=== PATIENT | male | born 1960 | race Caucasian/White ===

== ENCOUNTER 2017-06-15 08:35 | Emergency (ER) | payer OTHER ==
[2017-06-15] MEDS ORDERED: NS 0.9% 1000 ML* 1,000 ML IV ONE (09:25)
[2017-06-15 09:56] LABS: ABS Basophils 0.1 10^3/ul (0-0.2); ABS Eosinophils 0.5 10^3/ul (0-0.6); ABS Lymphocytes 1.8 10^3/ul (1.0-4.8); ABS Monocytes 1.1 10^3/ul (0-0.8); ABS Neutrophils 6.6 10^3/ul (1.5-7.7); ABS Nucleated RBC 0 10^3/ul; Eosinophil % 4.7 % (0-6); Hematocrit 35 % (42-52); Hemoglobin 12.1 g/dl (14.0-18.0); Lymphocyte % 18.1 % (25-47); Mean Corpuscular HGB Conc 34 g/dl (31-36); Mean Corpuscular Hemoglobin 33 pg (27-31); Mean Corpuscular Volume 96 fL (80-94); Mean Platelet Volume 7 um3 (7.4-10.4); Nucleated Red Blood Cells % 0.3; Platelet Count 134 10^3/ul (150-450); Red Blood Count 3.66 10^6/ul (4.0-5.4); Red Cell Distribution Width 14 % (10.5-15)
[2017-06-15 10:24] LABS: EGFR Non-African American 132.2 (>60)
[2017-06-15 14:10] VITALS: BP 112/63
--- NOTE | 2017-06-15 16:23 | ED ---
Shamar Mena Stephanie, scribed for Esteban Jay MD on 06/15/17 at 1033 . GI/ HPI - HPI Summary HPI Summary: The pt is a 57 y/o M presenting to the ED with c/o diarrhea that began 1 month ago after being prescribed abx for pneumonia. The diarrhea began as loose stools and currently is described as watery stools 4-5x per day. The PCP suggested Imodium (no effect) . He denies taking probiotics. Symptoms include decreased appetite and lack of energy. The pt reports being able to drink more fluids since stopping Imodium. - History of Current Complaint Chief Complaint: EDNauseaVomitDiarrh Time Seen by Provider: 06/15/17 09:17 Stated Complaint: DIARRHEA 1 MONTH Hx Obtained From: Patient Onset/Duration: Started Weeks Ago - 4 Timing: Constant Pain Intensity: 0 Associated Signs and Symptoms: Positive: Diarrhea, Change in Appetite, Other: - Positive: Decreased energy Aggravating Factor(s): Food Alleviating Factor(s): Nothing - Allergy/Home Medications Allergies/Adverse Reactions: Allergies Allergy/AdvReac Type Severity Reaction Status Date / Time No Known Allergies Allergy Verified 12/14/14 09:18 PMH/Surg Hx/FS Hx/Imm Hx Endocrine/Hematology History: Denies: Hx Diabetes, Hx Thyroid Disease Cardiovascular History: Denies: Hx Hypertension Respiratory History: Reports: Hx Chronic Obstructive Pulmonary Disease (COPD) - MAYBE Denies: Hx Asthma GI History: Denies: Hx Ulcer Infectious Disease History: No Infectious Disease History: Reports: Hx Hepatitis - Hepatitis C Denies: Hx Human Immunodeficiency Virus (HIV), History Other Infectious Disease, Traveled Outside the [place] in Last 30 Days - Family History Known Family History: Positive: Unknown - Pt denies family history when asked - Social History Alcohol Use: None Alcohol Amount: not for one month Hx Substance Use: No Substance Use Type: Reports: None Hx Tobacco Use: Yes Smoking Status (MU): Heavy Every Day Tobacco Smoker Type: Cigarettes Amount Used/How Often: 1/2 ppd Length of Time of Smoking/Using Tobacco: 20 years Have You Smoked in the Last Year: Yes Review of Systems Positive: Other - Positive: Decreased appetite, decreased energy. Negative: Fever Positive: Diarrhea All Other Systems Reviewed And Are Negative: Yes Physical Exam - Summary Physical Exam Summary: Appearance: The patient is well-nourished in no acute distress and in no acute pain. Skin: The skin is warm and dry and skin color reflects adequate perfusion. HEENT: The head is normocephalic and atraumatic. The pupils are equal and reactive. The conjunctivae are clear and without drainage. Nares are patent and without drainage. Dry mucus membranes. Throat is without erythema and exudate. The external ears are intact. The ear canals are patent and without drainage. The tympanic membranes are intact. Neck: the neck is supple with full range of motion and non-tender. There are no carotid bruits. There is no neck vein distension. Respiratory: Chest is non-tender. Lungs are clear to auscultation and breath sounds are symmetrical and equal. Cardiovascular: Heart is borderline tachycardic. . There is no murmur or rub auscultated. There is no peripheral edema and pulses are symmetrical and equal. Abdomen: The abdomen is soft and non-tender. There are normal bowel sounds heard in all four quadrants and there is no organomegaly palpated. Musculoskeletal: There is no back tenderness noted. Extremities are non-tender with full range of motion. There is good capillary refill. There is no peripheral edema or calf tenderness elicited. Neurological: Patient is alert and oriented to person, place and time. The patient has symmetrical motor strength in all four extremities. Cranial nerves are grossly intact. Deep tendon reflexes are symmetrical and equal in all four extremities. Psychiatric: The patient has an appropriate affect and does not exhibit any anxiety or depression. Triage Information Reviewed: Yes Vital Signs On Initial Exam: Initial Vitals Temp Pulse Resp BP Pulse Ox 98.9 F 102 18 112/70 92 06/15/17 08:36 06/15/17 08:36 06/15/17 08:36 06/15/17 08:36 06/15/17 08:36 Vital Signs Reviewed: Yes - Sarwat Coma Scale Coma Scale Total: 15 Diagnostics - Vital Signs Vital Signs Temp Pulse Resp BP Pulse Ox 06/15/17 09:00 96 17 116/61 93 06/15/17 08:52 100.4 F 100 22 94 06/15/17 08:50 117/67 06/15/17 08:36 98.9 F 102 18 112/70 92 - Laboratory Lab Results: Lab Results 06/15/17 06/15/17 06/15/17 Range/Units 09:40 09:40 09:40 WBC 10.0 (3.5-10.8) 10^3/ul RBC 3.66 L (4.0-5.4) 10^6/ul Hgb 12.1 L (14.0-18.0) g/dl Hct 35 L (42-52) % MCV 96 H (80-94) fL MCH 33 H (27-31) pg MCHC 34 (31-36) g/dl RDW 14 (10.5-15) % Plt Count 134 L (150-450) 10^3/ul MPV 7 L (7.4-10.4) um3 Neut % (Auto) 65.4 (38-83) % Lymph % (Auto) 18.1 L (25-47) % [place] % (Auto) 11.2 H (1-9) % Eos % (Auto) 4.7 (0-6) % Baso % (Auto) 0.6 (0-2) % Absolute Neuts (auto) 6.6 (1.5-7.7) 10^3/ul Absolute Lymphs (auto) 1.8 (1.0-4.8) 10^3/ul Absolute Monos (auto) 1.1 H (0-0.8) 10^3/ul Absolute Eos (auto) 0.5 (0-0.6) 10^3/ul Absolute Basos (auto) 0.1 (0-0.2) 10^3/ul Absolute Nucleated RBC 0 10^3/ul Nucleated RBC % 0.3 Sodium 130 L (133-145) mmol/L Potassium 3.3 L (3.5-5.0) mmol/L Chloride 99 L (101-111) mmol/L Carbon Dioxide 26 (22-32) mmol/L Anion Gap 5 (2-11) mmol/L BUN 10 (6-24) mg/dL Creatinine 0.63 L (0.67-1.17) mg/dL Est GFR ( Amer) 170.0 (>60) Est GFR (Non-Af Amer) 132.2 (>60) BUN/Creatinine Ratio 15.9 (8-20) Glucose 120 H (70-100) mg/dL Lactic Acid 2.1 H* (0.5-2.0) mmol/L Calcium 7.6 L (8.6-10.3) mg/dL Total Bilirubin 2.20 H (0.2-1.0) mg/dL AST 44 H (13-39) U/L ALT 24 (7-52) U/L Alkaline Phosphatase 61 (34-104) U/L C-Reactive Protein 50.26 H (< 5.00) mg/L Total Protein 6.7 (6.4-8.9) g/dL Albumin 2.1 L (3.2-5.2) g/dL Globulin 4.6 H (2-4) g/dL Albumin/Globulin Ratio 0.5 L (1-3) Lipase 58 (11.0-82.0) U/L Result Diagrams: 06/15/17 09:40 06/15/17 09:40 Lab Statement: Any lab studies that have been ordered have been reviewed, and results considered in the medical decision making process. GIGU Course/Dx - Course Course Of Treatment: Mr. Daily presented with watery diarrhea for several days. He was rehydrated and his stool was positive for fecal lactoferrin. I will treat him with levaquin for 5 days and cultures will be followed. - Diagnoses Provider Diagnoses: Gastroenteritis Discharge - Discharge Plan Condition: Stable Disposition: HOME Prescriptions: Levofloxacin TAB* [Levaquin TAB*] 750 mg PO DAILY #5 tab Patient Education Materials: Gastroenteritis (ED) Forms: *Work Release Referrals: Selina SOLIMAN,Edmond Peoples [Primary Care Provider] - Additional Instructions: Follow up with primary care physician next week. The documentation as recorded by the Shamar ho Stephanie accurately reflects the service I personally performed and the decisions made by , Esteban Jay MD.
--- NOTE | 2017-06-16 09:08 | PN ---
Progress Note - Progress Note Date of Service: 06/15/17 Note: C. diff negative. Fecal Lactroferrin positive. Negative cryptosporidium/giardia Positive stool occult blood No medications are warranted at this time. Nothing further. Ashley Fowler PA-C
== END 2017-06-15 14:04 | disposition home or self-care (01) ==
LOC: ED 08:35
DX: K52.9 Noninfective gastroenteritis and colitis, unspecified (principal); Z86.19 Personal history of other infectious and parasitic diseases; F17.210 Nicotine dependence, cigarettes, uncomplicated
CPT/HCPCS: 36415; 80053; 82272; 83605; 83630; 83690; 85025; 86140; 87328; 87329; 87493; 96360; 99284

== ENCOUNTER 2017-06-26 08:44 | Inpatient (IN) | payer OTHER ==
[2017-06-26 10:26] LABS: ABS Basophils 0 10^3/ul (0-0.2); ABS Eosinophils 0.2 10^3/ul (0-0.6); ABS Lymphocytes 1.6 10^3/ul (1.0-4.8); ABS Monocytes 0.8 10^3/ul (0-0.8); ABS Neutrophils 6.9 10^3/ul (1.5-7.7); ABS Nucleated RBC 0 10^3/ul; Eosinophil % 2.1 % (0-6); Hematocrit 36 % (42-52); Hemoglobin 12.2 g/dl (14.0-18.0); Lymphocyte % 16.8 % (25-47); Mean Corpuscular HGB Conc 34 g/dl (31-36); Mean Corpuscular Hemoglobin 33 pg (27-31); Mean Corpuscular Volume 96 fL (80-94); Mean Platelet Volume 7 um3 (7.4-10.4); Nucleated Red Blood Cells % 0.3; Platelet Count 118 10^3/ul (150-450); Red Blood Count 3.72 10^6/ul (4.0-5.4); Red Cell Distribution Width 15 % (10.5-15); White Blood Count 9.5 10^3/ul (3.5-10.8)
[2017-06-26] MEDS ORDERED: NS 0.9% 1000 ML* 1,000 ML IV ONE ×2 (10:37→11:25)
--- NOTE | 2017-06-26 10:43 | ED ---
Complex/Multi-Sys Presentation - HPI Summary HPI Summary: 57 male presents to ED with complaints of chronic diarrhea, dysphagia and losing weight over the past month or so. Patient states he is getting to the point he is unable to eat and drink due to the discomfort. States he feels weak and fatigued. Admits to cigarette and alcohol use however has not in the past month due to feeling so ill. Patient denies any known PMHx other than COPD and hepatitis c. No medications daily. Has not taken any since. Has been treated with antibitoics due to findings of fecal lactoferrin in stool when he was year ~10 days ago. Negative for c diff at this time. Patient completed the levofloxacin however is still experiencing symptoms. Denies urinary symptoms. Admits to intermittent red-colored blood in stool that has also been ongoing. Patient has followed up with GI last week who scheduled a colonscopy and endoscopy for this Monday. Patient however comes to ED today due to concern for weight loss and not being able to eat. Concerned for his well being. Denies trouble breathing, chest pain and vomiting. Admits to intermittent nausea. Denies any current pain, lower right sided abdominal pain comes and goes and is related to eating/drinking. - History Of Current Complaint Chief Complaint: EDGeneral Time Seen by Provider: 06/26/17 09:55 Hx Obtained From: Patient Onset/Duration: Gradual Onset, Lasting Weeks, Still Present, Worse Since Timing: Constant Severity Currently: Moderate Severity Initially: Mild Aggravating Factor(s): eating/drinking Alleviating Factor(s): not eating/drinking Associated Signs And Symptoms: Positive: Weakness, Nausea, Abdominal Pain - Allergies/Home Medications Allergies/Adverse Reactions: Allergies Allergy/AdvReac Type Severity Reaction Status Date / Time No Known Allergies Allergy Verified 06/26/17 08:54 Home Medications: Home Medications NK [No Home Medications Reported] 06/26/17 [History Confirmed 06/26/17] PMH/Surg Hx/FS Hx/Imm Hx Endocrine/Hematology History: Denies: Hx Diabetes, Hx Thyroid Disease Cardiovascular History: Denies: Hx Hypertension Respiratory History: Reports: Hx Chronic Obstructive Pulmonary Disease (COPD) - MAYBE Denies: Hx Asthma GI History: Denies: Hx Ulcer - Surgical History Surgery Procedure, Year, and Place: none - Immunization History Immunizations Up to Date: Yes Infectious Disease History: No Infectious Disease History: Reports: Hx Hepatitis - Hepatitis C Denies: Hx Human Immunodeficiency Virus (HIV), History Other Infectious Disease, Traveled Outside the [place] in Last 30 Days - Family History Known Family History: Positive: Unknown - Pt denies family history when asked - Social History Alcohol Use: None Alcohol Amount: not for one month Hx Substance Use: No Substance Use Type: Reports: None Hx Tobacco Use: Yes Smoking Status (MU): Former Smoker Type: Cigarettes Amount Used/How Often: 1/2 ppd Length of Time of Smoking/Using Tobacco: 20 years Have You Smoked in the Last Year: Yes Review of Systems Constitutional: Negative Cardiovascular: Negative Respiratory: Negative Positive: Abdominal Pain, Diarrhea, Nausea, Other - dysphagia Musculoskeletal: Negative Skin: Negative Neurological: Negative All Other Systems Reviewed And Are Negative: Yes Physical Exam Triage Information Reviewed: Yes Vital Signs On Initial Exam: Initial Vitals Temp Pulse Resp BP Pulse Ox 99.8 F 100 18 108/74 98 06/26/17 08:49 06/26/17 08:49 06/26/17 08:49 06/26/17 08:49 06/26/17 08:49 low grade temp noted Vital Signs Reviewed: Yes Appearance: Positive: No Pain Distress, Well-Nourished, Ill-Appearing, Thin, Cachectic Skin: Positive: Warm, Skin Color Reflects Adequate Perfusion, Dry, Pale, Other - some increased skin turgor time. Negative: Cold, Numb, Cyanosis @ Head/Face: Positive: Normal Head/Face Inspection Eyes: Positive: Conjunctiva Clear ENT: Positive: Hearing grossly normal, Pharyngeal erythema - with white exudate in oropharynx area, TMs normal, Uvula midline, Other - dry mucous membranes with white exudate on tongue, geopraphic looking tongue. Negative: Nasal congestion, Tonsillar swelling, Tonsillar exudate, Dental tenderness, Sinus tenderness Dental: Positive: Gross Decay/Caries @ Neck: Positive: Supple, Nontender, No Lymphadenopathy Respiratory/Lung Sounds: Positive: Clear to Auscultation, Breath Sounds Present , Wheezes - diffuse. Negative: Rales, Rhonchi Cardiovascular: Positive: Normal, RRR, Pulses are Symmetrical in both Upper and Lower Extremities. Negative: Murmur, Rub Abdomen Description: Positive: No Organomegaly, Soft, Distended - acites, Other : - tender on deep palpation of RLQ. Negative: Bruit, CVA Tenderness (R), CVA Tenderness (L), Guarding, Hernia @, McBurney's Point Tenderness Bowel Sounds: Positive: Present Musculoskeletal: Positive: Normal, Strength/ROM Intact Neurological: Positive: Normal, Sensory/Motor Intact, Alert, Oriented to Person Place, Time, CN Intact II-III, Reflexes Intact, NV Bundle Intact Distally, Normal Gait - Sarwat Coma Scale Coma Scale Total: 15 Diagnostics - Vital Signs Vital Signs Temp Pulse Resp BP Pulse Ox 06/26/17 09:17 99 114/70 98 06/26/17 08:49 99.8 F 100 18 108/74 98 - Laboratory Lab Results: Lab Results 06/26/17 Range/Units 10:07 WBC 9.5 (3.5-10.8) 10^3/ul RBC 3.72 L (4.0-5.4) 10^6/ul Hgb 12.2 L (14.0-18.0) g/dl Hct 36 L (42-52) % MCV 96 H (80-94) fL MCH 33 H (27-31) pg MCHC 34 (31-36) g/dl RDW 15 (10.5-15) % Plt Count 118 L (150-450) 10^3/ul MPV 7 L (7.4-10.4) um3 Neut % (Auto) 72.1 (38-83) % Lymph % (Auto) 16.8 L (25-47) % [place] % (Auto) 8.8 (1-9) % Eos % (Auto) 2.1 (0-6) % Baso % (Auto) 0.2 (0-2) % Absolute Neuts (auto) 6.9 (1.5-7.7) 10^3/ul Absolute Lymphs (auto) 1.6 (1.0-4.8) 10^3/ul Absolute Monos (auto) 0.8 (0-0.8) 10^3/ul Absolute Eos (auto) 0.2 (0-0.6) 10^3/ul Absolute Basos (auto) 0 (0-0.2) 10^3/ul Absolute Nucleated RBC 0 10^3/ul Nucleated RBC % 0.3 Result Diagrams: 06/26/17 10:07 06/26/17 10:07 Lab Statement: Any lab studies that have been ordered have been reviewed, and results considered in the medical decision making process. - CT chest/abd/pelvis CT Interpretation: Positive (See Comments) - 1. No specific CT abnormalities of the chest. 2. Cirrhotic liver morphology. 3. Multiple hepatic lesions concerning for hepatic metastasis. 4. Cholelithiasis. 5. Infiltration and nodularity of the mesentery. The findings are suspicious for peritoneal carcinomatosis. 6. Moderate ascites. 7. Diffuse bowel wall thickening of the colon suggests colitis. 8. Chronic L4 spondylolysis with anterolisthesis and underlying osseous or changes. CT Interpretation Completed By: Radiologist - and myself soft tissue neck CT Interpretation: No Acute Changes - IMPRESSION: No visceral mass, lymphadenopathy, or inflammatory process of the neck evident within limits of noncontrast CT. CT Interpretation Completed By: Radiologist - and myself Re-Evaluation - Re-Evaluation First Eval Re-Evaluation Time: 11:30 Change: Unchanged - still feeling ok, upated on lab results and given fluids for dehydration. waiting on CT patient understands he will have hospitalist consult and probably be admitted Complex Multi-Symp Course/Dx Course Of Treatment: labs obtained. showed signs of dehydration and hypokalemia/ hypocalcemia. Albumin globulin values off, lactic acid slightly elevated at 2.1. Anemic, similar to previously obtained labs 10 days ago. bili and liver enzymes off, patient does have hep c. CRP elevated. due to physical exam findings and labs CT neck, chest, abd, pelvic obtained. Showed probably mets and other forms of cancer along with cirrhosis of liver. Report is attached above. Patient dehydrated and unable to take care of himself. Spoke with hospitalist Dr Rivero, at 11:15am who will see patient and admit. given fluids while in ED. - Diagnoses Differential Diagnoses/HQI/PQRI: Other - dehydration, diarrhea, dysphagia, infection, cancer, cirrhosis Provider Diagnoses: Dehydration, Cirrhosis of liver - Physician Notifications Discussed Care Of Patient With: Johnny Cheng NP Time Discussed With Above Provider: 11:15 Instructed by Provider To: Admit As Inpatient Discharge - Discharge Plan Condition: Stable Disposition: ADMITTED TO [facility]
[2017-06-26 10:48] LABS: EGFR Non-African American 123.2 (>60)
[2017-06-26] MEDS ORDERED: Iohexol 300* (CONTRAST) 10 ML SDV IV ONE (11:08)
[2017-06-26] MEDS ORDERED: Loperamide LIQ* 2 MG/10 ML UDC PO PRN (13:05)
--- NOTE | 2017-06-26 13:40 | RAD ---
INDICATION: Difficulty and pain with swallowing. Weight loss. Tobacco use. Abdominal pain. COMPARISON: No relevant prior exams available on the [facility] PACS for comparison. TECHNIQUE: Multidetector CT images skull base to lung apices without contrast. REPORT: Assessment of the neck viscera is limited without IV contrast. Unremarkable pharyngeal mucosal space contours. Unremarkable false and true vocal cords and visualized subglottic airway. Symmetric parapharyngeal fat. Unremarkable parotid and submandibular glands. Unremarkable thyroid gland. Negative for lymphadenopathy. Clear paranasal sinuses and mastoid air spaces. Negative for suspicious focal osseous lesions, fracture, or articular malalignment. Advanced disc space narrowing, osteophytosis, and subchondral sclerosis at the C3-C4 disc space. Uncinate process spurring results in moderately severe bilateral C3-C4 foraminal stenosis. The remaining cervical spine disc levels demonstrate only mild degenerative spondylosis. Uncinate process spurring results in mild RIGHT unilateral C4-C5 foraminal stenosis. IMPRESSION: No visceral mass, lymphadenopathy, or inflammatory process of the neck evident within limits of noncontrast CT.
--- NOTE | 2017-06-26 13:46 | RAD ---
INDICATION: Pain. Weight loss. COMPARISON: None TECHNIQUE: Axial source images were obtained from the thoracic inlet to the symphysis pubis following administration of intravenous contrast. 91 mL Omnipaque 300 was utilized. Coronal and sagittal reconstructed images were acquired. CHEST FINDINGS: Neck/thyroid: The visualized neck to include the thyroid appear normal. Chest wall: There are no acute abnormalities of the bony thorax or chest wall. There is no supraclavicular, infraclavicular, or axillary lymphadenopathy. Lungs : There are no pulmonary parenchymal masses or infiltrates. The pulmonary interstitium appears normal. There are no endobronchial lesions. Cardiomediastinal structures: The heart is normal in size. There is no pericardial effusion. There is no evidence of aortic aneurysm or dissection. The pulmonary vessels appear normal. There is no mediastinal or hilar adenopathy. The esophagus appears normal. Pleura : There are no pleural-based masses or effusions. ABDOMINAL/PELVIC FINDINGS: Liver: The liver is heterogeneous with a nodular configuration. These morphologic features may relate to cirrhosis. There are multiple low-density masses scattered throughout both left and right hepatic lobes. These measure up to 2.7 cm and are suspicious for hepatic metastasis. Gallbladder: Cholelithiasis. Spleen: Moderate splenomegaly without focal mass. Incidental note is made of a cleft in the superior spleen. There is a probable splenule. Pancreas: There is no evidence of pancreatic mass or ductal dilatation. Adrenal glands: There is no evidence of adrenal mass. Kidneys: The kidneys are normal in size and position. There are prompt nephrograms and there is prompt excretion bilaterally. There are no renal parenchymal masses. There is no evidence of nephrolithiasis. Adenopathy: No discrete intraperitoneal masses but there is diffuse nodularity throughout the mesentery suggestive of peritoneal carcinomatosis. Fluid collections: Moderate ascites. Vessels:The aorta and IVC appear normal GI tract: Evaluation of the GI tract is mildly limited without oral contrast. The patient could not ingest the oral contrast. The upper GI tract is grossly normal. There is diffuse wall thickening of the colon suggestive of colitis Pelvic organs: The prostate and seminal vesicles appear normal Bladder: There are no bladder masses. Abdominal and pelvic soft tissues: The extraperitoneal abdominal and pelvic soft tissues appear normal.. Osseous structures: There are no acute osseous findings. There is advanced degenerative change about L4-L5 with a grade 1-2 anterolisthesis and a chronic L4 spondylolysis. There is spurring at the thoracolumbar junction. There are bilateral pseudoarticulations at L5. IMPRESSION: 1. No specific CT abnormalities of the chest. 2. Cirrhotic liver morphology. 3. Multiple hepatic lesions concerning for hepatic metastasis. 4. Cholelithiasis. 5. Infiltration and nodularity of the mesentery. The findings are suspicious for peritoneal carcinomatosis. 6. Moderate ascites. 7. Diffuse bowel wall thickening of the colon suggests colitis. 8. Chronic L4 spondylolysis with anterolisthesis and underlying osseous or changes. Findings called to ED
[2017-06-26] MEDS ORDERED: Heparin VIAL(*) 5000 UNITS/ML VIAL (FIVE THOUSAND) SUBCUT SCH (15:00)
[2017-06-26] MEDS: D5W 1/2 NS 40 Meq KCL 1000 ML* 1,000 ML IV SCH (17:38)
[2017-06-26] MEDS ORDERED: PEG 3000 GI LAVAGE* 1 GALLON PO ONE (21:00)
--- NOTE | 2017-06-26 22:27 | HP ---
HISTORY AND PHYSICAL: DATE OF ADMISSION: 06/26/17 PRIMARY CARE PROVIDER: ADDY Coffey in [place]. MY ATTENDING WHILE IN THE HOSPITAL: Dr. Shannan Chance * (DICTATED BY CALVIN GRAY) CHIEF COMPLAINT: Diarrhea and weight loss x1 month. HISTORY OF PRESENT ILLNESS: The patient is a 57-year-old male with a past medical history significant for hepatitis C, cirrhosis, alcohol abuse, tobacco abuse and COPD, who presents to the emergency department the secondary time in the last month with diarrhea and weight loss of about 15 pounds. The patient describes diarrhea as watery that happens numerous times a day, small amounts each time without tenesmus. Occasionally, there is a small amount of bright red blood. The patient states it wakes him up in the middle of the night to have to go, but he is not incontinent of stool. The patient states he has been increasingly lethargic and feels dehydrated, but denies any lightheadedness or dizziness. The patient states he has diffuse abdominal discomfort, but denies swelling or any stabbing pains. The patient also says that he has trouble swallowing food, mainly solids that get stuck part of the way down his throat. The patient, however, is able to eat soft food such as yogurt, occasional cereal as long as it is moist. The patient is seen outpatient by a supervisor keymodule assembly, who is planning to do a colonoscopy and endoscopy this coming Monday. The patient sees Dr. Coleman in [place]. The patient has a history of liver cirrhosis documented on abdominal ultrasound at this institution previously, approximately 8 years ago, but does not know much about the natural history of his disease and does not follow with a supervisor keymodule assembly or accordion tuner. The patient denies any recent travels or camping, eating abnormal foods, changes in diet or medications. The patient traveled to [facility] 2 years ago, but did not have any symptoms after that. The patient denies fevers, chills, overt nausea or vomiting, chest pain or shortness of breath. The patient states he feels like he has a postnasal drip. The patient states that he has not had anything to drink or smoke in 30 days since this began. PAST MEDICAL HISTORY: COPD, hepatitis C with cirrhosis, tobacco use disorder, alcohol abuse disorder. MEDICATIONS: The patient uses an unknown inhaler and denies any other medication use. ALLERGIES: The patient has no known drug allergies. FAMILY HISTORY: The patient denies a family history of CAD, colon cancer, inflammatory bowel disease, celiac disease, or diabetes. The patient's grandmother of breast cancer, but has no other family history of cancer. SOCIAL HISTORY: The patient has a 25-pack year history of smoking, quit 30 days ago. The patient has 6-pack a day drinking habit, quit 30 days ago. The patient denies any illicit drugs. The patient works as an low voltage electrician, is not , has a long-term partner, name Deni Sanz, who is his healthcare proxy. The patient also has 2 children. REVIEW OF SYSTEMS: A 14-point review of systems was reviewed with the patient and is negative expect as stated in the HPI. PHYSICAL EXAMINATION GENERAL: The patient is a 57-year-old male, who is sitting in the bed, in no acute distress and appears stated age. VITAL SIGNS: Temperature 99.8, heart rate 100, respiratory rate 18, oxygen saturation 99% on room air, blood pressure 108/74. HEENT: Head: Normocephalic, atraumatic. Sclerae anicteric. No conjunctival injection. Nasal mucosa dry. Oral mucosa dry. Pharynx erythematous. There is significant postnasal drainage. NECK: Supple, nontender. No lymphadenopathy. No carotid bruit auscultated. RESPIRATORY: The patient has expiratory wheezes throughout all lung santos with prolonged expiratory phase. Good air exchange bilaterally. No other abnormalities. CARDIAC: Regular rate and rhythm. No clicks, murmurs, gallops, or rubs. Pulses 2+ in the bilateral dorsal pedis, posterior tibialis, and radial areas. The patient has 1+ pitting edema in the bilateral lower extremities symmetrically. ABDOMEN: Soft. Tenderness to deep palpation in the left lower quadrant. Moderate distention. Fluid wave negative. Bowel sounds present and normoactive in all 4 quadrants. No palpable hepatosplenomegaly. The patient has a small vesicular rash, which he described as pruritic over his middle and lower abdomen. No abdominal bruits auscultated. RECTAL: Exam performed. There is no formed stool in the rectal vault. There are no masses or internal or external hemorrhoids observed. The anus and perianal skin are red, but otherwise normal to palpation. No skin tags or fissures noted. MUSCULOSKELETAL: The patient has full range of motion and is fully ambulatory. SKIN: Clean, dry, intact except for vesicular rash as stated above. The patient is pale. NEUROLOGIC: Cranial nerves II through XII grossly intact. Alert and oriented x3. No focal deficits. PSYCHIATRIC: The patient is pleasant and cooperative. LABORATORY DATA: White blood cell count 9.5, red blood cell count 3.72, hemoglobin 12.2, hematocrit 36, MCV 96, MCH 33, MCHC 34, RDW 15, platelet count 118, MPV 7, neutrophil percent 72, lymphocyte percent 16.8. Sodium 128, potassium 3.3, chloride 98, carbon dioxide 26, anion gap 4, BUN 12, creatinine 0.67, glucose 90, lactic acid 2.1, calcium 7.5, magnesium 1.9. Bilirubin 2.3, AST 71, ALT 42, alkaline phosphatase 72, ammonia 49. CRP is 34.45. Protein 6.9 , albumin 1.7, globulin 5.2, albumin/globulin ration 0.3, lipase 90. DIAGNOSTIC IMAGING: Neck CT read as no visceral mass, lymphadenopathy, or inflammatory process of the neck evident within the limits of noncontrast CT. Chest, abdomen, and pelvis CT read as no specific CT abnormality of the chest, cirrhotic liver morphology, multiple hepatic lesions concerning for hepatic metastasis, cholelithiasis, infiltration and nodularity of the mesentery, findings are suspicious for peritoneal carcinomatosis, moderate sized diffuse bowel wall thickening of the colon suggest colitis, chronic L4 spondylosis with anterolisthesis and underlying osseous changes. ASSESSMENT AND PLAN: The patient is a 57-year-old male with a past medical history significant for hepatitis C with cirrhosis, alcohol abuse disorder, tobacco abuse disorder and chronic obstructive pulmonary disease, who presents with 1-month of diarrhea and a 15-pound weight loss as well as bright red blood per rectum. The patient had a CT scan of the abdomen concerning for liver metastasis. The patient will be admitted to the hospital for electrolyte replacement, supportive care, colonoscopy, GI and Oncology consult. 1. Liver metastasis. The patient has cirrhosis, has never had a colonoscopy before, has 15-pound weight loss, and chronic diarrhea as well as CT evidence of liver metastasis. Appreciate Oncology input most likely colon cancer. The patient will undergo a colonoscopy while in the hospital. The patient's CEA antigen pending. No other serologic tumor markers recommended by Oncology. 2. Cirrhosis. The patient has known hepatitis C. We will get the patient's most recent records from his supervisor keymodule assembly in [place]. The patient does not believe that he follows with anybody for his cirrhosis. The patient has a MELD score of 22; however, the patient does not show any signs of hepatorenal syndrome yet and this picture may be complicated by his liver metastasis. It is not believe by Oncology that this represents hepatocellular carcinoma at this point and we will not draw an AFP. The patient's ammonia levels were not encephalopathic. The patient's only LFT abnormalities were bilirubin 2.3 and AST of 71. 3. Diarrhea, colitis on CT. The patient's colitis must be characterized more fully before undergoing any treatment for his liver and mesenteric nodules. The patient will have a workup done for inflammatory bowel disease and celiac disease. The patient also is C. diff positive, Shiga toxin, and stool lactoferrin pending. The patient will also have a stool stat for chronic pancreatic insufficiency. The patient has a lipase of 90. The patient has signs of dehydration and lactic acidosis. Lactic acid repeat pending and the patient will be started on 1.5 mL normal saline D5W with K, 40 mEq KCl at 125 mL an hour. The patient will be n.p.o. except for sips of H2O for his colonoscopy. The patient will undergo a bowel prep at the discretion of Gastroenterology. Stool occult blood sent. 4. Hypokalemia. Continue repletion with IV fluids. 5. FEN. The patient will be n.p.o. as above with fluids as above. 6. Code status. The patient wants to be a full code. 7. DVT prophylaxis. The patient is a high risk and will be started on heparin 5000 units subcu q.8 hours. 8. Disposition. The patient is admitted inpatient. TIME SPENT: Approximately 75 minutes were spent on this admission, 45 of which were spent [id number] with the patient obtaining history and physical and discussing the treatment plan. CALVIN GRAY [id number]/[facility] #: [id number] [place]
--- NOTE | 2017-06-27 00:23 | CONS ---
CC: CALVIN Coffey * CONSULTATION REPORT: DATE OF CONSULT: 06/26/17 REQUESTING PHYSICIAN: Dr. Chance. REASON FOR CONSULT: Abdominal pain, colitis. HISTORY OF PRESENT ILLNESS: The patient was seen and examined in the emergency room. Mr. Daily is a 57-year-old who, approximately a month ago , developed worsening diarrhea. He states it has been present for many years; however, over the past month, it has definitely worsened. He is moving his bowels 4 to 5 times per day. They are very loose. They are bloody with maroon stools. He also describes approximately 4 weeks of dysphagia. He solids. He does admit to weight loss. He has really been unable to eat any solids over the past month. He has a history of alcoholism and appears that he has hepatitis C. He did see a director of nurses registry in [place] and was scheduled for an EGD and colonoscopy this Monday. He came to the emergency room because he did not think that he could be n.p.o. and drink the prep. He does have a history of COPD. PAST MEDICAL HISTORY: Significant for COPD and alcoholism. PAST SURGICAL HISTORY: None. MEDICATIONS: He denies any medications. ALLERGIES: No known drug allergies. FAMILY HISTORY: Denies any liver disease in the family. REVIEW OF SYSTEMS: 12 systems were reviewed, other than that mentioned in the HPI were unremarkable. PHYSICAL EXAM: Temperature is 99.1, blood pressure is 114/69, pulse is 94. General: Chronically ill-appearing male, in no apparent distress, alert, oriented, pleasant, and fluent. Skin: He does have spider angiomata. HEENT: Sclerae are slightly icteric. No rashes or ulcers. Dentition is poor. Lungs: Decreased breath sounds bilaterally, expiratory wheeze. Heart: Regular rate and rhythm. No murmurs, rubs, or gallops. Abdomen: Obese. Positive bowel sounds, soft. Diffuse tenderness throughout. He does have dull flanks. No rebound. No guarding. Neuro: Negative for asterixis. DIAGNOSTIC STUDIES/LAB DATA: Of note, white count is 9.5, platelets of 118, hemoglobin is 12.2. Sodium of 128, bilirubin is 2.3, AST is 71, ALT is 42, alk phos is 72. CEA is 8.8. Lipase is 80. CT shows a cirrhotic liver, multiple hepatic lesions, question of peritoneal carcinomatosis. He has moderate ascites and colitis. IMPRESSION: This is a 57-year-old with abnormal CT findings, weight loss, and lab changes. All of this is suspicious for a malignancy. Primary is unknown at this point. It could be liver given his cirrhosis history; however, given the multiple nodules, metastasis seems more likely. It could be primary colon, it could primary esophagus. At this point, he does need an EGD and colonoscopy. It is going to be difficult I think to prep him for a colonoscopy as he is really having a difficult time he said taking liquids. I did discuss just sipping the GoLYTELY over the short term. He may end up needing an NG tube. We did discuss the possible NG tube in order to deliver the GoLYTELY. I think I would like to have him try and sip it today and may be tomorrow. If by tomorrow afternoon if he is not able to take enough, we may need to place the NG temporarily to get down the GoLYTELY. We will continue to follow along very closely. [id number]/[facility] #: [id number] [place]
[2017-06-27] MEDS: D5W 1/2 NS 40 Meq KCL 1000 ML* 1,000 ML IV SCH ×3 (01:48→21:21)
--- NOTE | 2017-06-27 07:33 | CONSULT ---
Consultation - Reason for Consultation Reason for Consultation: liver mets, ascites Ordering Provider: Nikolai Lawrence Chief Complaint: bloody stools and diarrhea History of Present Illness: 57 yo M w PMH of hepatitis C, cirrhosis, heavy tobacco and ETOH abuse, presenting with bloody diarrhea, weight loss and dysphagia. Zachery reports that he felt well until 2 months ago when he developed worsening of his baseline cough with green sputum. He went to urgent care twice, with two courses of antibiotics and one of steroids. Around the middle of the second course he developed frequent liquidy maroonish diarrhea (4-6 times per day). He began having difficulty with swallowing solids, which he thought was related to being dehydrated. He denies fevers. He went to a doctor at [facility] (had not been to a primary in years) and was referred to a registered nurse practitioner in [place]. He was scheduled for an endoscopy and colonoscopy tomorrow but did not think he could handle the prep because of dehydration and so came to the ER. Here he was noted to have multiple liver lesions, peritoneal implants, ascites, and colitis. He has been seen in consultation by GI and is starting a prep for an endoscopy and colonoscopy. He denies headaches, diplopia, weakness, nausea, vomiting, abdominal pain, bony pains, rash or EVELIA. He endorses 15 lb weight loss and subtle increase in abdominal girth. He drinks at least a 6 pack per day and this is the longest he has ever not drank. He is unsure as to how he "contracted" hepatitis C but denies IV drug use. His c diff in the ER was negative. Allergies/Medications Medication: no home meds Albuterol/Ipratropium (Duoneb (Albuterol 2.5 Mg/Ipratropium 0.5 Mg)) 1 neb INH Q4H PRN PRN Reason: SOB/WHEEZING Potassium Chloride/Dextrose (D5w 1/2 Ns 40 Meq Kcl 1000 Ml*) 1,000 mls @ 125 mls/hr IV PER RATE [facility] Last Admin: 06/27/17 01:48 Dose: 125 mls/hr Loperamide HCl (Imodium Liq*) 2 mg PO .SEE ORDER PRN PRN Reason: DIARRHEA - NOT DURING GOLYTELY Nystatin (Nystatin Suspension*) 500,000 units PO QID [facility]1983 Stop: 07/04/17 07:24 Allergies/Adverse Reactions: Allergies Allergy/AdvReac Type Severity Reaction Status Date / Time No Known Allergies Allergy Verified 06/26/17 08:54 History - Past Medical History Other History: hepatitis C. ETOH abuse. tobacco abuse - Family History Other Family History: denies - Social History Other Social History: drinks at least a 6 ppd. 35 pack year history of smoking 1ppd, "quit" 3 days ago. lives with Girlfriend and grandchild in [place]. Review of Systems - Review of Systems General Comments: extensive as per hpi Physical Exam - Physical Exam Physical Examination: Vital Signs Temp Pulse Resp BP Pulse Ox 97.8 F 89 16 104/62 100 06/26/17 23:19 06/27/17 03:14 06/27/17 03:14 06/27/17 03:14 06/27/17 03:14 lying flat in nad op-very dry with thrush CTA bl s1 s2 nl distended +fluid wave, nontender 1+ pitting edema bl no tremor no EVELIA +spider angiomas on chest wall A+O x 3, nonfocal neurological exam Results - Lab Results Lab Results: 06/26/17 13:53 Lactic Acid 1.9 Laboratory Results - last 24 hr 06/26/17 06/26/17 06/26/17 10:07 10:07 10:07 WBC 9.5 RBC 3.72 L Hgb 12.2 L Hct 36 L MCV 96 H MCH 33 H MCHC 34 RDW 15 Plt Count 118 L MPV 7 L Neut % (Auto) 72.1 Lymph % (Auto) 16.8 L Bond % (Auto) 8.8 Eos % (Auto) 2.1 Baso % (Auto) 0.2 Absolute Neuts (auto) 6.9 Absolute Lymphs (auto) 1.6 Absolute Monos (auto) 0.8 Absolute Eos (auto) 0.2 Absolute Basos (auto) 0 Absolute Nucleated RBC 0 Nucleated RBC % 0.3 Sodium 128 L Potassium 3.3 L Chloride 98 L Carbon Dioxide 26 Anion Gap 4 BUN 12 Creatinine 0.67 Est GFR ( Amer) 158.4 Est GFR (Non-Af Amer) 123.2 BUN/Creatinine Ratio 17.9 Glucose 90 Lactic Acid 2.1 H* Calcium 7.5 L Magnesium 1.9 Total Bilirubin 2.30 H AST 71 H ALT 42 Alkaline Phosphatase 72 Ammonia C-Reactive Protein 34.45 H Total Protein 6.9 Albumin 1.7 L Globulin 5.2 H Albumin/Globulin Ratio 0.3 L Lipase 90 H Carcinoembryonic Ag 8.8 H 06/26/17 06/26/17 13:13 13:53 WBC RBC Hgb Hct MCV MCH MCHC RDW Plt Count MPV Neut % (Auto) Lymph % (Auto) Bond % (Auto) Eos % (Auto) Baso % (Auto) Absolute Neuts (auto) Absolute Lymphs (auto) Absolute Monos (auto) Absolute Eos (auto) Absolute Basos (auto) Absolute Nucleated RBC Nucleated RBC % Sodium Potassium Chloride Carbon Dioxide Anion Gap BUN Creatinine Est GFR ( Amer) Est GFR (Non-Af Amer) BUN/Creatinine Ratio Glucose Lactic Acid 1.9 Calcium Magnesium Total Bilirubin AST ALT Alkaline Phosphatase Ammonia 49 C-Reactive Protein Total Protein Albumin Globulin Albumin/Globulin Ratio Lipase Carcinoembryonic Ag Assessment and Plan Impression: 57 yo M w hepatitis C, cirrhosis, ETOH and tobacco abuse, presenting with dysphagia, weight loss, and bloody diarrhea and found to have multiple liver lesions, peritoneal implants and ascites concerning for metastatic disease. I completely agree with upper and lower endoscopies to asses for a primary. Even if we were able to get a diagnosis off of the peritoneal fluid, with his symptoms and colitis on CT scan it will be important to see what the in situ tumor looks like for therapy (eg-does he need local palliative treatment). He is not particularly uncomfortable from his ascites, however it would be reasonable to perform a paracentesis, which we will do either today or tomorrow at bedside. I have taken the liberty of starting nystatin for his thrush and checking an HIV test given his hepatitis C. He has never stopped drinking for > 24 hours and so I would advise monitoring for withdrawal. Thank you for this consultation and we will continue to follow with you
[2017-06-27] MEDS ORDERED: LORazepam TAB(*) 0.5 MG PO PRN (08:43)
[2017-06-27] MEDS: Nystatin SUSPENSION* 100000 UNITS/ML 5 ML UDC PO SCH ×4 (12:23→21:30)
[2017-06-27 16:49] LABS: ABS Basophils 0 10^3/ul (0-0.2); ABS Eosinophils 0.3 10^3/ul (0-0.6); ABS Lymphocytes 2.1 10^3/ul (1.0-4.8); ABS Monocytes 0.9 10^3/ul (0-0.8); ABS Nucleated RBC 0 10^3/ul; Eosinophil % 3.9 % (0-6); Hematocrit 34 % (42-52); Hemoglobin 11.5 g/dl (14.0-18.0); Lymphocyte % 24.9 % (25-47); Mean Corpuscular HGB Conc 34 g/dl (31-36); Mean Corpuscular Hemoglobin 33 pg (27-31); Mean Corpuscular Volume 97 fL (80-94); Mean Platelet Volume 6 um3 (7.4-10.4); Nucleated Red Blood Cells % 0.3; Platelet Count 118 10^3/ul (150-450); Red Cell Distribution Width 15 % (10.5-15); White Blood Count 8.4 10^3/ul (3.5-10.8)
[2017-06-27 17:06] LABS: EGFR Non-African American 151.5 (>60)
[2017-06-27 17:07] LABS: INR 2.38 (0.77-1.02)
[2017-06-27] MEDS: Albuterol/Ipratropium NEB.SOL* Albuterol 2.5 MG/Ipratropium 0.5 MG 3 ML INH PRN (17:26)
--- NOTE | 2017-06-27 19:23 | PN ---
Subjective Date of Service: 06/27/17 Interval History: Pt feels "OK". c/o problems with swallowing food(worse for solids) and early satiety x 1 month. lost 15 lbs x 2 months. Several loose BM's a day x 2 months. Increase in abd girth x 1 month Stopped smoking and drinking ETOH 1 month ago Objective Active Medications: Albuterol/Ipratropium (Duoneb (Albuterol 2.5 Mg/Ipratropium 0.5 Mg)) 1 neb INH Q4H PRN PRN Reason: SOB/WHEEZING Last Admin: 06/27/17 17:26 Dose: 1 neb Potassium Chloride/Dextrose (D5w 1/2 Ns 40 Meq Kcl 1000 Ml*) 1,000 mls @ 125 mls/hr IV PER RATE RICKIE Last Admin: 06/27/17 10:51 Dose: 125 mls/hr Loperamide HCl (Imodium Liq*) 2 mg PO .SEE ORDER PRN PRN Reason: DIARRHEA - NOT DURING GOLYTELY Last Admin: 06/27/17 13:41 Dose: 2 mg Lorazepam (Ativan Tab(*)) 0.5 mg PO Q4H PRN PRN Reason: withdrawal Last Admin: 06/27/17 13:41 Dose: 0.5 mg Nystatin (Nystatin Suspension*) 500,000 units PO QID [facility] Stop: 07/04/17 07:24 Last Admin: 06/27/17 17:42 Dose: Not Given Vital Signs - 8 hr 06/27/17 06/27/17 06/27/17 13:41 15:45 17:26 Pulse Rate 82 Respiratory 16 16 14 Rate O2 Sat by Pulse 99 Oximetry Oxygen Devices in Use Now: None Appearance: 57 yo M in NAD, AAOx3, thin body habitus Eyes: No Scleral Icterus, PERRLA Ears/Nose/Mouth/Throat: NL Teeth, Lips, Gums, Mucous Membranes Moist Neck: NL Appearance and Movements; NL JVP, Trachea Midline Respiratory: Symmetrical Chest Expansion and Respiratory Effort Cardiovascular: NL Sounds; No Murmurs; No JVD, RRR Abdominal: - - soft ascites present, NT, BS+ Lymphatic: No Cervical Adenopathy Extremities: No Edema, No Clubbing, Cyanosis Skin: No Nodules or Sclerosis Neurological: Alert and Oriented x 3, NL Muscle Strength and Tone Result Diagrams: 06/27/17 16:39 06/27/17 16:38 Additional Lab and Data: Lab Results 06/26/17 Range/Units 10:07 WBC 9.5 (3.5-10.8) 10^3/ul RBC 3.72 L (4.0-5.4) 10^6/ul Hgb 12.2 L (14.0-18.0) g/dl Hct 36 L (42-52) % MCV 96 H (80-94) fL MCH 33 H (27-31) pg MCHC 34 (31-36) g/dl RDW 15 (10.5-15) % Plt Count 118 L (150-450) 10^3/ul MPV 7 L (7.4-10.4) um3 Neut % (Auto) 72.1 (38-83) % Lymph % (Auto) 16.8 L (25-47) % [place] % (Auto) 8.8 (1-9) % Eos % (Auto) 2.1 (0-6) % Baso % (Auto) 0.2 (0-2) % Absolute Neuts (auto) 6.9 (1.5-7.7) 10^3/ul Absolute Lymphs (auto) 1.6 (1.0-4.8) 10^3/ul Absolute Monos (auto) 0.8 (0-0.8) 10^3/ul Absolute Eos (auto) 0.2 (0-0.6) 10^3/ul Absolute Basos (auto) 0 (0-0.2) 10^3/ul Absolute Nucleated RBC 0 10^3/ul Nucleated RBC % 0.3 Microbiology and Other Data: Microbiology 06/26/17 14:09 Stool Occult Blood (ROGELIO) - Final Stool Assess/Plan/Problems-Billing Assessment: 57 yo M with h/o ETOH and tobacco abuse with diarrhea, early satiety , problems swallowing and CT showing liver mets and pertitoneal lesions - Patient Problems (1) Liver mass Comment: Pt has h/o Hep C and ETOH abuse appreciate oncology eval EGD today (2) LFT elevation Comment: and INR>2-liver failure due to liver cirrhosis (ETOH related) and liver mets. (3) DVT prophylaxis Comment: no anticoagulants prior to EGD Status and Disposition: Inpatient
[2017-06-27] MEDS ORDERED: Midazolam* 1 MG/ML 10 ML VIAL (10 MG) ONE (20:09)
[2017-06-27] MEDS ORDERED: fentaNYL* 50 MCG/ML 2 ML VIAL (100 MCG VIAL) ONE (20:10)
[2017-06-28] MEDS: D5W 1/2 NS 40 Meq KCL 1000 ML* 1,000 ML IV SCH ×2 (05:57→14:17)
[2017-06-28] MEDS: Albuterol/Ipratropium NEB.SOL* Albuterol 2.5 MG/Ipratropium 0.5 MG 3 ML INH PRN (07:29)
[2017-06-28 08:24] LABS: ABS Basophils 0 10^3/ul (0-0.2); ABS Eosinophils 0.3 10^3/ul (0-0.6); ABS Lymphocytes 2.4 10^3/ul (1.0-4.8); ABS Neutrophils 7.9 10^3/ul (1.5-7.7); ABS Nucleated RBC 0 10^3/ul; Eosinophil % 2.5 % (0-6); Hematocrit 34 % (42-52); Hemoglobin 11.5 g/dl (14.0-18.0); Lymphocyte % 20.8 % (25-47); Mean Corpuscular HGB Conc 34 g/dl (31-36); Mean Corpuscular Hemoglobin 33 pg (27-31); Mean Corpuscular Volume 98 fL (80-94); Mean Platelet Volume 7 um3 (7.4-10.4); Nucleated Red Blood Cells % 0.2; Platelet Count 108 10^3/ul (150-450); Red Blood Count 3.49 10^6/ul (4.0-5.4); Red Cell Distribution Width 16 % (10.5-15); White Blood Count 11.6 10^3/ul (3.5-10.8)
[2017-06-28 08:35] LABS: EGFR Non-African American 168.7 (>60)
[2017-06-28] MEDS: Nystatin SUSPENSION* 100000 UNITS/ML 5 ML UDC PO SCH ×5 (09:43→19:59)
--- NOTE | 2017-06-28 13:16 | PRO ---
DATE: 06/27/17 REFERRING PRACTITIONER: CALVIN Coffey, [place], [place] * PROCEDURE: Upper gastrointestinal endoscopy and biopsy of esophageal erosions and brushing for viral culture. INDICATION: Dysphagia and a 15-pound weight loss. HISTORY: This 57-year-old man with alcohol abuse issues has had a sense of trouble swallowing. He says it is due to a dry mouth. ENDOSCOPIST: Dr. Santana MEDICATION: Midazolam 6, fentanyl 25. FINDINGS: He is a chronically ill-appearing man, in no overt cardiorespiratory distress. EGD: Larynx - very thick secretions and a dry beefy red appearance to the mucosa. Esophagus - easily entered and has an appearance of edema with mucosal thickening and then multiple docbyjvz-ai-iazjhf oriented, somewhat serpiginous erosions. They are superficial for the most part and look punched out, potentially opportunistic or viral in nature. They are scattered in the proximal mid and distal esophagus, possibly most prominent in the mid esophagus. They do not have a typical appearance of peptic lesions. There is no exudate or monilia. lesions are deep and undermining. EG junction is at 33 and then there is a jagrjcxt-un-sqtdd hiatal hernia. The gastric mucosa appears pretty normal. Stomach - generally normal mucosa in the cardia, fundus, body, and antrum apart from minimal fine polka-dot erythema suggestive of early portal hypertensive gastropathy. There are no erosions and no bleeding. The antrum appears normal. Duodenum - the bulb and second through fourth portions appear normal. During the withdrawal phase, the esophageal erosions were biopsied x4 and the brushing taken for viral culture. IMPRESSION: 1. Xerostomia - an ENT consult might be of value. 2. Atypical erosive esophagitis - a viral process is a definite possibility. 3. Cvkgnyui-eh-niswe hiatal hernia - his symptoms and the appearance of esophagus are atypical for reflux. [id number]/[facility] [place] #: [id number] [facility]
[2017-06-28] MEDS ORDERED: Acetaminophen TAB* 325 MG PO PRN (14:23)
[2017-06-28] MEDS ORDERED: D5W 1/2 NS 40 Meq KCL 1000 ML* 1,000 ML IV SCH (14:56)
--- NOTE | 2017-06-28 15:04 | PN ---
Subjective Date of Service: 06/28/17 Interval History: C/O increased bloating with a sip of Go-lytely. Liquid, red BM's today. Objective Active Medications: Acetaminophen (Tylenol Tab*) 650 mg PO Q4H PRN PRN Reason: PAIN Last Admin: 06/28/17 14:29 Dose: 650 mg Albuterol/Ipratropium (Duoneb (Albuterol 2.5 Mg/Ipratropium 0.5 Mg)) 1 neb INH Q4H PRN PRN Reason: SOB/WHEEZING Last Admin: 06/28/17 07:29 Dose: 1 neb Potassium Chloride/Dextrose (D5w 1/2 Ns 40 Meq Kcl 1000 Ml*) 1,000 mls @ 40 mls /hr IV PER RATE RICKIE Lorazepam (Ativan Tab(*)) 0.5 mg PO Q4H PRN PRN Reason: withdrawal Last Admin: 06/27/17 13:41 Dose: 0.5 mg Nystatin (Nystatin Suspension*) 500,000 units PO QID [facility] Stop: 07/04/17 07:24 Last Admin: 06/28/17 13:24 Dose: Not Given Phytonadione (Vitamin K Oral Solution*) 5 mg PO DAILY [facility] Stop: 06/29/17 16:00 Vital Signs - 8 hr 06/28/17 06/28/17 06/28/17 07:19 07:32 08:00 Temperature Pulse Rate 101 100 Respiratory 22 17 24 Rate Blood Pressure 105/62 (mmHg) O2 Sat by Pulse 94 91 Oximetry 06/28/17 06/28/17 09:48 13:20 Temperature 97.9 F 98.1 F Pulse Rate 98 Respiratory 20 Rate Blood Pressure 111/61 (mmHg) O2 Sat by Pulse 97 Oximetry Oxygen Devices in Use Now: None Appearance: Alert, partly up in bed. In fair spirits. Looks comfortable. Eyes: No Scleral Icterus Abdominal: - - distended, not tender. Extremities: No Clubbing, Cyanosis, - - 2+ edema. Neurological: Alert and Oriented x 3, NL Sensation Result Diagrams: 06/28/17 08:03 06/28/17 08:03 Additional Lab and Data: Lab Results 06/26/17 Range/Units 10:07 WBC 9.5 (3.5-10.8) 10^3/ul RBC 3.72 L (4.0-5.4) 10^6/ul Hgb 12.2 L (14.0-18.0) g/dl Hct 36 L (42-52) % MCV 96 H (80-94) fL MCH 33 H (27-31) pg MCHC 34 (31-36) g/dl RDW 15 (10.5-15) % Plt Count 118 L (150-450) 10^3/ul MPV 7 L (7.4-10.4) um3 Neut % (Auto) 72.1 (38-83) % Lymph % (Auto) 16.8 L (25-47) % [place] % (Auto) 8.8 (1-9) % Eos % (Auto) 2.1 (0-6) % Baso % (Auto) 0.2 (0-2) % Absolute Neuts (auto) 6.9 (1.5-7.7) 10^3/ul Absolute Lymphs (auto) 1.6 (1.0-4.8) 10^3/ul Absolute Monos (auto) 0.8 (0-0.8) 10^3/ul Absolute Eos (auto) 0.2 (0-0.6) 10^3/ul Absolute Basos (auto) 0 (0-0.2) 10^3/ul Absolute Nucleated RBC 0 10^3/ul Nucleated RBC % 0.3 Microbiology and Other Data: Microbiology 06/26/17 14:09 Stool Occult Blood (ROGELIO) - Final Stool Assess/Plan/Problems-Billing Assessment: 57 yo M with h/o ETOH and tobacco abuse with diarrhea, early satiety , problems swallowing and CT showing liver mets and pertitoneal lesions - Patient Problems (1) Liver mass Current Visit: Yes Status: Acute Code(s): R16.0 - HEPATOMEGALY, NOT ELSEWHERE CLASSIFIED SNOMED Code(s): 262013410 Comment: Pt has h/o Hep C and ETOH abuse appreciate oncology eval EGD showed esophageal erosions not typical of malignancy, hiatal hernia. Colonscopy 06/29 planned. (2) Hyponatremia Current Visit: Yes Status: Acute Code(s): E87.1 - HYPO-OSMOLALITY AND HYPONATREMIA SNOMED Code(s): 62425503 Comment: Stop IV fluids. BMP 06/29. (3) Cirrhosis Current Visit: Yes Status: Acute Comment: Note low albumin and high INR. Vitamin K ordered PO. Status and Disposition: Inpatient
[2017-06-28] MEDS: Phytonadione Oral Solution* 5 MG/25 ML UDC PO SCH (15:54)
--- NOTE | 2017-06-28 20:17 | PN ---
Progress Note - Progress Note Date of Service: 06/28/17 - Gastroenterology Note: Patient seen and examined. Unable to tolerate NGT insertion. Agreeable to take colon prep orally. Admits to bloating. No nausea/emesis. Early satiety. 5 loose bowel movements last night. Nurse described it as pink mucous discharge mixed with stool. Vital Signs: Temp Pulse Resp BP Pulse Ox 97.4 F 92 22 105/67 94 06/28/17 19:48 06/28/17 19:48 06/28/17 19:48 06/28/17 19:48 06/28/17 19:48 GENERAL: Cachetic, appears older than stated age. NAD. HEENT: Poor dentition, dry MM. CV: RRR. PULM: CTAB. ABDOMEN: soft, fluid wave and tympanic, non-tender. +BS. EXT: + B/L edema. Laboratory Last Values WBC 11.6 10^3/ul (3.5-10.8) H 06/28/17 08:03 RBC 3.49 10^6/ul (4.0-5.4) L 06/28/17 08:03 Hgb 11.5 g/dl (14.0-18.0) L 06/28/17 08:03 Hct 34 % (42-52) L 06/28/17 08:03 MCV 98 fL (80-94) H 06/28/17 08:03 MCH 33 pg (27-31) H 06/28/17 08:03 MCHC 34 g/dl (31-36) 06/28/17 08:03 RDW 16 % (10.5-15) H 06/28/17 08:03 Plt Count 108 10^3/ul (150-450) L 06/28/17 08:03 MPV 7 um3 (7.4-10.4) L 06/28/17 08:03 Neut % (Auto) 68.1 % (38-83) 06/28/17 08:03 Lymph % (Auto) 20.8 % (25-47) L 06/28/17 08:03 [place] % (Auto) 8.4 % (1-9) 06/28/17 08:03 Eos % (Auto) 2.5 % (0-6) 06/28/17 08:03 Baso % (Auto) 0.2 % (0-2) 06/28/17 08:03 Absolute Neuts (auto) 7.9 10^3/ul (1.5-7.7) H 06/28/17 08:03 Absolute Lymphs (auto) 2.4 10^3/ul (1.0-4.8) 06/28/17 08:03 Absolute Monos (auto) 1.0 10^3/ul (0-0.8) H 06/28/17 08:03 Absolute Eos (auto) 0.3 10^3/ul (0-0.6) 06/28/17 08:03 Absolute Basos (auto) 0 10^3/ul (0-0.2) 06/28/17 08:03 Absolute Nucleated RBC 0 10^3/ul 06/28/17 08:03 Nucleated RBC % 0.2 06/28/17 08:03 INR (Anticoag Therapy) 2.38 (0.77-1.02) H 06/27/17 16:39 Sodium 125 mmol/L (133-145) L 06/28/17 08:03 Potassium 4.4 mmol/L (3.5-5.0) 06/28/17 08:03 Chloride 104 mmol/L (101-111) 06/28/17 08:03 Carbon Dioxide 15 mmol/L (22-32) L 06/28/17 08:03 Anion Gap 6 mmol/L (2-11) 06/28/17 08:03 BUN 7 mg/dL (6-24) 06/28/17 08:03 Creatinine 0.51 mg/dL (0.67-1.17) L 06/28/17 08:03 Est GFR ( Amer) 217.0 (>60) 06/28/17 08:03 Est GFR (Non-Af Amer) 168.7 (>60) 06/28/17 08:03 BUN/Creatinine Ratio 13.7 (8-20) 06/28/17 08:03 Glucose 144 mg/dL (70-100) H 06/28/17 08:03 Lactic Acid 1.9 mmol/L (0.5-2.0) 06/26/17 13:53 Calcium 7.2 mg/dL (8.6-10.3) L 06/28/17 08:03 Magnesium 1.9 mg/dL (1.9-2.7) 06/27/17 16:38 Total Bilirubin 1.50 mg/dL (0.2-1.0) H 06/28/17 08:03 AST 88 U/L (13-39) H 06/28/17 08:03 ALT 43 U/L (7-52) 06/28/17 08:03 Alkaline Phosphatase 70 U/L (34-104) 06/28/17 08:03 Ammonia 49 mol/L (16-53) 06/26/17 13:13 C-Reactive Protein 34.45 mg/L (< 5.00) H 06/26/17 10:07 Total Protein 6.4 g/dL (6.4-8.9) 06/28/17 08:03 Albumin 1.4 g/dL (3.2-5.2) L 06/28/17 08:03 Globulin 5.0 g/dL (2-4) H 06/28/17 08:03 Albumin/Globulin Ratio 0.3 (1-3) L 06/28/17 08:03 Lipase 90 U/L (11.0-82.0) H 06/26/17 10:07 Tumor Marker AFP 13 ng/mL (<6.0) H 06/26/17 10:07 Carcinoembryonic Ag 8.8 ng/mL (0.1-5.0) H 06/26/17 10:07 CA 19-9 Antigen 109 U/mL (<35) H 06/26/17 10:07 Proteinase 3 (PR3) < 0.2 U 06/26/17 13:31 Myeloperoxidase Ab < 0.2 U 06/26/17 13:31 Tiss Transglutamin IgG 3.3 U/mL 06/26/17 13:31 Tiss Transglutamin IgA <1.2 U/mL 06/26/17 13:31 HIV 1&2 Antibody Nonreactive (Nonreactive) 06/27/17 16:39 57 yo male with untreated HCV, Etoh and tobacco abuse, chronic diarrhea and abnormal CT imaging with ascites, metastatic liver lesions and colitis. 1. Chronic diarrhea with colitis on the colon on CT imaging. ~Possible obstructive lesion as the cause for diarrhea and colitis. ~Plan for colonoscopy tomorrow if able to tolerate the prep and if INR <1.5. 2. Metastatic liver lesions with ascites. ~In need of diagnostic and therapeutic paracentesis by IR with albumin as soon as possible as this may causing his bloating symptoms and intolerance to colon prep. Will d/w primary team. ~Watch for signs of obstruction with serial abdominal exams due to possible mass in colon masking as colitis on CT. ~Elevated AFP level. ~Oncology following. Appreciate their recommendations. 3. Coagulopathy ~s/p Vitamin K today. ~Goal INR for Colonoscopy is 1.5. 4. Dysphagia ~S/p EGD yesterday with atypical esophagitis (possible viral or opportunistic infection). ~Follow-up bx from EGD. ~HIV pending. 5. HCV ~Outpatient work-up. 6. Etoh abuse ~DT precautions. 7. Tobacco abuse D/w patient, Dr. Kennedy and RN. -Mc Van.O.
[2017-06-28] MEDS ORDERED: Morphine INJ* 2 MG/ML 1 ML SYRINGE (TWO MG - NEW SYRINGE VERSION) IV PRN (20:48)
[2017-06-29 06:50] LABS: ABS Basophils 0 10^3/ul (0-0.2); ABS Eosinophils 0.3 10^3/ul (0-0.6); ABS Lymphocytes 2.1 10^3/ul (1.0-4.8); ABS Monocytes 0.8 10^3/ul (0-0.8); ABS Neutrophils 6.9 10^3/ul (1.5-7.7); ABS Nucleated RBC 0 10^3/ul; Eosinophil % 2.7 % (0-6); Hematocrit 37 % (42-52); Hemoglobin 12.6 g/dl (14.0-18.0); Lymphocyte % 20.8 % (25-47); Mean Corpuscular HGB Conc 34 g/dl (31-36); Mean Corpuscular Hemoglobin 33 pg (27-31); Mean Corpuscular Volume 97 fL (80-94); Mean Platelet Volume 7 um3 (7.4-10.4); Nucleated Red Blood Cells % 0.4; Platelet Count 123 10^3/ul (150-450); Red Blood Count 3.79 10^6/ul (4.0-5.4); Red Cell Distribution Width 16 % (10.5-15); White Blood Count 10.2 10^3/ul (3.5-10.8)
[2017-06-29 07:08] LABS: EGFR Non-African American 205.5 (>60)
[2017-06-29] MEDS: Nystatin SUSPENSION* 100000 UNITS/ML 5 ML UDC PO SCH ×4 (09:34→20:07)
[2017-06-29] MEDS: Phytonadione Oral Solution* 5 MG/25 ML UDC PO SCH (09:34)
--- NOTE | 2017-06-29 09:34 | PN ---
Progress Note - Progress Note Date of Service: 06/29/17 SOAP: Subjective: clearly more dyspneic today. had to have momin placed last night because of urinary retention. they were unable to place NGT due to patient tolerance. Objective: Vital Signs Temp Pulse Resp BP Pulse Ox 97.9 F 106 16 128/72 99 06/29/17 03:13 06/29/17 03:13 06/29/17 03:13 06/29/17 03:13 06/29/17 03:13 dyspneic rhonchorous tachy distended, nt ,+abd wall anasarca 2+ LE edema A+O x 3 Laboratory Results - last 24 hr 06/26/17 06/26/17 06/27/17 10:07 13:31 16:39 WBC RBC Hgb Hct MCV MCH MCHC RDW Plt Count MPV Neut % (Auto) Lymph % (Auto) [place] % (Auto) Eos % (Auto) Baso % (Auto) Absolute Neuts (auto) Absolute Lymphs (auto) Absolute Monos (auto) Absolute Eos (auto) Absolute Basos (auto) Absolute Nucleated RBC Nucleated RBC % Sodium Potassium Chloride Carbon Dioxide Anion Gap BUN Creatinine Est GFR ( Amer) Est GFR (Non-Af Amer) BUN/Creatinine Ratio Glucose Calcium Tumor Marker AFP 13 H CA 19-9 Antigen 109 H Proteinase 3 (PR3) < 0.2 Myeloperoxidase Ab < 0.2 Tiss Transglutamin IgG 3.3 Tiss Transglutamin IgA <1.2 Anti-Gliadin IgG Ab <10.0 Anti-Gliadin IgA Ab <10.0 HIV 1&2 Antibody Nonreactive 06/29/17 06/29/17 06:02 06:02 WBC 10.2 RBC 3.79 L Hgb 12.6 L Hct 37 L MCV 97 H MCH 33 H MCHC 34 RDW 16 H Plt Count 123 L MPV 7 L Neut % (Auto) 68.0 Lymph % (Auto) 20.8 L [place] % (Auto) 8.1 Eos % (Auto) 2.7 Baso % (Auto) 0.4 Absolute Neuts (auto) 6.9 Absolute Lymphs (auto) 2.1 Absolute Monos (auto) 0.8 Absolute Eos (auto) 0.3 Absolute Basos (auto) 0 Absolute Nucleated RBC 0 Nucleated RBC % 0.4 Sodium 126 L Potassium TNP Chloride 105 Carbon Dioxide 18 L Anion Gap 3 BUN 7 Creatinine 0.43 L Est GFR ( Amer) 264.2 Est GFR (Non-Af Amer) 205.5 BUN/Creatinine Ratio 16.3 Glucose 91 Calcium 7.5 L Tumor Marker AFP CA 19-9 Antigen Proteinase 3 (PR3) Myeloperoxidase Ab Tiss Transglutamin IgG Tiss Transglutamin IgA Anti-Gliadin IgG Ab Anti-Gliadin IgA Ab HIV 1&2 Antibody Assessment: 57 yo M w hep C and ETOH cirrhosis with multiple liver lesions, peritoneal implants and colitis. Please disregard tumor markers for now as they are NOT specific enough in this setting. AFP low and not characteristic of HCC. CA 19- 9 is elevated but in the setting of ascites and colitis this is NOT specific for pancreatic cancer. These tests are most helpful in a therapeutic setting and NOT a diagnostic situation. I was able to perform a bedside paracentesis today (see separate procedure note ) however only removed 2L. I did not want to pursue further blinded attempts with an elevated INR. If further fluid needed for comfort would recommend doing under IR guidance, though they will likely request lower INR. Plan: -stat CXR for NGT placement and will then give golytely prep -send fluid for cytology and analysis, ~15-30% chance of this being diagnostic -colonoscopy hopefully later today
--- NOTE | 2017-06-29 09:37 | PROCNOTE ---
Hematology/Oncology Procedure Hematology/Oncology Procedure Note: paracentesis Informed consent obtained. time out performed in accordance with hospital policy. anesthesia with 1% lidocaine administered. paracentesis of ~2L yellowish fluid obtained on 2 attempts (catheter inadvertently pulled out mid procedure with vacutainer positioning). patient tolerated procedure well without obvious complications. Fluid to be sent for analysis. At the conclusion of procedure, NGT placed without obvious complications. position confirmed by ascultation and CXR pending.
--- NOTE | 2017-06-29 10:03 | RAD ---
Indication: Chronic diarrhea. NG tube placement. Comparison: June 26, 2017 CT. Technique: Upright AP 0935 hours Report: Nasogastric tube passes to the stomach with the tip at level of the gastric fundus body junction directed peripheral. Negative for free air beneath the diaphragm. No focal pulmonary lesion, compelling alveolar consolidation, pleural effusion, pneumothorax. IMPRESSION: Nasogastric tube passes to the stomach with the tip at level of the gastric fundus body junction directed peripheral.
[2017-06-29 11:07] LABS: INR 2.52 (0.77-1.02)
--- NOTE | 2017-06-29 14:15 | PN ---
Subjective Date of Service: 06/29/17 Interval History: Pain control OK. Appetite remains poor. No new c/o. Objective Active Medications: Acetaminophen (Tylenol Tab*) 650 mg PO Q4H PRN PRN Reason: PAIN Last Admin: 06/28/17 14:29 Dose: 650 mg Albuterol/Ipratropium (Duoneb (Albuterol 2.5 Mg/Ipratropium 0.5 Mg)) 1 neb INH Q4H PRN PRN Reason: SOB/WHEEZING Last Admin: 06/28/17 07:29 Dose: 1 neb Lorazepam (Ativan Tab(*)) 0.5 mg PO Q4H PRN PRN Reason: withdrawal Last Admin: 06/27/17 13:41 Dose: 0.5 mg Morphine Sulfate (Morphine Inj (Syringe)*) 2 mg IV Q4H PRN PRN Reason: PAIN - MILD Nystatin (Nystatin Suspension*) 500,000 units PO QID [facility] Stop: 07/04/17 07:24 Last Admin: 06/29/17 13:20 Dose: Not Given Phytonadione (Vitamin K Oral Solution*) 5 mg PO DAILY [facility] Stop: 06/29/17 16:00 Last Admin: 06/29/17 09:34 Dose: 5 mg Vital Signs - 8 hr 06/29/17 06/29/17 06/29/17 08:00 10:23 11:31 Temperature 97.1 F 98.2 F Pulse Rate 115 111 Respiratory 24 24 20 Rate Blood Pressure 103/66 120/77 (mmHg) O2 Sat by Pulse 91 89 Oximetry 06/29/17 06/29/17 12:56 13:24 Temperature 97.2 F 97.7 F Pulse Rate 109 107 Respiratory 24 24 Rate Blood Pressure 122/72 121/66 (mmHg) O2 Sat by Pulse 95 94 Oximetry Oxygen Devices in Use Now: Nasal Cannula Appearance: Alert, partly up in bed. In fair spirits. Looks comfortable although sl tachypneic. Eyes: No Scleral Icterus Respiratory: Symmetrical Chest Expansion and Respiratory Effort, Clear to Auscultation, Clear to Percussion Cardiovascular: NL Sounds; No Murmurs; No JVD, RRR, No Edema, - Abdominal: - - very distended, soft, not tender. Extremities: No Clubbing, Cyanosis, - - 2+ edema BL. Skin: No Rash or Ulcers, No Nodules or Sclerosis, - Neurological: Alert and Oriented x 3, NL Sensation Result Diagrams: 06/29/17 06:02 06/29/17 11:27 Additional Lab and Data: Lab Results 06/26/17 Range/Units 10:07 WBC 9.5 (3.5-10.8) 10^3/ul RBC 3.72 L (4.0-5.4) 10^6/ul Hgb 12.2 L (14.0-18.0) g/dl Hct 36 L (42-52) % MCV 96 H (80-94) fL MCH 33 H (27-31) pg MCHC 34 (31-36) g/dl RDW 15 (10.5-15) % Plt Count 118 L (150-450) 10^3/ul MPV 7 L (7.4-10.4) um3 Neut % (Auto) 72.1 (38-83) % Lymph % (Auto) 16.8 L (25-47) % [place] % (Auto) 8.8 (1-9) % Eos % (Auto) 2.1 (0-6) % Baso % (Auto) 0.2 (0-2) % Absolute Neuts (auto) 6.9 (1.5-7.7) 10^3/ul Absolute Lymphs (auto) 1.6 (1.0-4.8) 10^3/ul Absolute Monos (auto) 0.8 (0-0.8) 10^3/ul Absolute Eos (auto) 0.2 (0-0.6) 10^3/ul Absolute Basos (auto) 0 (0-0.2) 10^3/ul Absolute Nucleated RBC 0 10^3/ul Nucleated RBC % 0.3 Microbiology and Other Data: Microbiology 06/26/17 14:09 Stool Occult Blood (ROGELIO) - Final Stool Assess/Plan/Problems-Billing Assessment: 57 yo M with h/o ETOH and tobacco abuse with diarrhea, early satiety , problems swallowing and CT showing liver mets and pertitoneal lesions - Patient Problems (1) Liver mass Current Visit: Yes Status: Acute Code(s): R16.0 - HEPATOMEGALY, NOT ELSEWHERE CLASSIFIED SNOMED Code(s): 718032220 Comment: Pt has h/o Hep C and ETOH abuse appreciate oncology eval EGD showed esophageal erosions not typical of malignancy, hiatal hernia. Colonscopy 06/29 planned about 15:30 PM.. (2) Hyponatremia Current Visit: Yes Status: Acute Code(s): E87.1 - HYPO-OSMOLALITY AND HYPONATREMIA SNOMED Code(s): 84794595 Comment: Na+ 126 on 06/29/17. (3) Cirrhosis Current Visit: Yes Status: Acute Comment: Note low albumin and high INR. Vitamin K ordered PO. Getting 3 U FFP in preparation for colonoscopy 06/29/17. Status and Disposition: Inpatient
--- NOTE | 2017-06-29 14:17 | PN ---
Progress Note - Progress Note Date of Service: 06/29/17 Note: I discussed risks of FFP infusion to patient about 12:30 PM.
--- NOTE | 2017-06-29 16:52 | PN ---
Progress Note - Progress Note Date of Service: 06/29/17 - Gastroenterology Note: Patient seen and examined. Feels slightly dyspneic today. Paracentesis was performed by oncology earlier today and 2L were removed. Abdominal pain has slightly subsided. No nausea/emesis. Tolerating prep via NGT. Minimal rectal bleeding. No melena. Vital Signs: Temp Pulse Resp BP Pulse Ox 97.1 F 102 24 105/55 100 06/29/17 15:44 06/29/17 15:44 06/29/17 15:44 06/29/17 15:44 06/29/17 15:44 GENERAL: AAOx3, uncomfortable from NGT tube. HEENT: Dry MM. CV: Tachycardic, regular rhythm. PULM: Rhonchi diffusely. ABDOMEN: Softer but still distended. EXTREMITIES: B/L lower extremity pitting edema. Laboratory Last Values WBC 10.2 10^3/ul (3.5-10.8) 06/29/17 06:02 RBC 3.79 10^6/ul (4.0-5.4) L 06/29/17 06:02 Hgb 12.6 g/dl (14.0-18.0) L 06/29/17 06:02 Hct 37 % (42-52) L 06/29/17 06:02 MCV 97 fL (80-94) H 06/29/17 06:02 MCH 33 pg (27-31) H 06/29/17 06:02 MCHC 34 g/dl (31-36) 06/29/17 06:02 RDW 16 % (10.5-15) H 06/29/17 06:02 Plt Count 123 10^3/ul (150-450) L 06/29/17 06:02 MPV 7 um3 (7.4-10.4) L 06/29/17 06:02 Neut % (Auto) 68.0 % (38-83) 06/29/17 06:02 Lymph % (Auto) 20.8 % (25-47) L 06/29/17 06:02 [place] % (Auto) 8.1 % (1-9) 06/29/17 06:02 Eos % (Auto) 2.7 % (0-6) 06/29/17 06:02 Baso % (Auto) 0.4 % (0-2) 06/29/17 06:02 Absolute Neuts (auto) 6.9 10^3/ul (1.5-7.7) 06/29/17 06:02 Absolute Lymphs (auto) 2.1 10^3/ul (1.0-4.8) 06/29/17 06:02 Absolute Monos (auto) 0.8 10^3/ul (0-0.8) 06/29/17 06:02 Absolute Eos (auto) 0.3 10^3/ul (0-0.6) 06/29/17 06:02 Absolute Basos (auto) 0 10^3/ul (0-0.2) 06/29/17 06:02 Absolute Nucleated RBC 0 10^3/ul 06/29/17 06:02 Nucleated RBC % 0.4 06/29/17 06:02 INR (Anticoag Therapy) 2.52 (0.77-1.02) H 06/29/17 10:02 Sodium 126 mmol/L (133-145) L 06/29/17 06:02 Potassium 4.3 mmol/L (3.5-5.0) 06/29/17 11:27 Chloride 105 mmol/L (101-111) 06/29/17 06:02 Carbon Dioxide 18 mmol/L (22-32) L 06/29/17 06:02 Anion Gap 3 mmol/L (2-11) 06/29/17 06:02 BUN 7 mg/dL (6-24) 06/29/17 06:02 Creatinine 0.43 mg/dL (0.67-1.17) L 06/29/17 06:02 Est GFR ( Amer) 264.2 (>60) 06/29/17 06:02 Est GFR (Non-Af Amer) 205.5 (>60) 06/29/17 06:02 BUN/Creatinine Ratio 16.3 (8-20) 06/29/17 06:02 Glucose 91 mg/dL (70-100) 06/29/17 06:02 Lactic Acid 1.9 mmol/L (0.5-2.0) 06/26/17 13:53 Calcium 7.5 mg/dL (8.6-10.3) L 06/29/17 06:02 Magnesium 1.9 mg/dL (1.9-2.7) 06/27/17 16:38 Total Bilirubin 1.50 mg/dL (0.2-1.0) H 06/28/17 08:03 AST 88 U/L (13-39) H 06/28/17 08:03 ALT 43 U/L (7-52) 06/28/17 08:03 Alkaline Phosphatase 70 U/L (34-104) 06/28/17 08:03 Ammonia 49 mol/L (16-53) 06/26/17 13:13 C-Reactive Protein 34.45 mg/L (< 5.00) H 06/26/17 10:07 Total Protein 6.4 g/dL (6.4-8.9) 06/28/17 08:03 Albumin 1.4 g/dL (3.2-5.2) L 06/28/17 08:03 Globulin 5.0 g/dL (2-4) H 06/28/17 08:03 Albumin/Globulin Ratio 0.3 (1-3) L 06/28/17 08:03 Lipase 90 U/L (11.0-82.0) H 06/26/17 10:07 Tumor Marker AFP 15 ng/mL (<6.0) H 06/27/17 16:39 Carcinoembryonic Ag 8.8 ng/mL (0.1-5.0) H 06/26/17 10:07 CA 19-9 Antigen 109 U/mL (<35) H 06/26/17 10:07 Fluid Source Peritonial fluid 06/29/17 09:00 Fluid Volume 7.0 mL 06/29/17 09:00 Fluid Color Yellow 06/29/17 09:00 Fluid Appearance Cloudy 06/29/17 09:00 Fluid WBC 390 /mcL ([id number]) 06/29/17 09:00 Fluid RBC 78 /mcL 06/29/17 09:00 Fluid Tot Cell Count 100 06/29/17 09:00 Fluid Neutrophils 32 % 06/29/17 09:00 Fluid Lymphocytes 43 % 06/29/17 09:00 Fluid Monocytes 25 % 06/29/17 09:00 Fluid Other Cells 7 06/29/17 09:00 Proteinase 3 (PR3) < 0.2 U 06/26/17 13:31 Myeloperoxidase Ab < 0.2 U 06/26/17 13:31 Tiss Transglutamin IgG 3.3 U/mL 06/26/17 13:31 Tiss Transglutamin IgA <1.2 U/mL 06/26/17 13:31 Anti-Gliadin IgG Ab <10.0 U 06/26/17 13:31 Anti-Gliadin IgA Ab <10.0 U 06/26/17 13:31 HIV 1&2 Antibody Nonreactive (Nonreactive) 06/27/17 16:39 Parasite Exam See comment 06/26/17 11:30 Blood Type B Positive 06/29/17 06:02 Antibody Screen Negative 06/29/17 06:02 57 yo male with untreated HCV, Etoh and tobacco abuse, chronic diarrhea and abnormal CT imaging with ascites, metastatic liver lesions, possible peritoneal carcinomatosis, and colitis. 1. Chronic diarrhea with colitis on the colon on CT imaging. ~Incomplete colonoscopy up to 35cm of the rectum due to severe colitis with edema, erythema and ulcerations s/p biopsies and fecal aspirate. ~Will discuss with Dr. Coy and Dr. Kennedy in AM in regards to next option of diagnosing primary source of malignancy since colonoscopy is too high risk for perforation at this time given severe colitis. 2. Metastatic liver lesions with ascites with possible peritoneal carcinomatosis. ~s/p paracentesis by Onc with 2L of fluid removed. Await fluid analysis. ~Albumin 25% 25g for 3 days for hypoalbuminemia and intravascular volume depletion. 3. Coagulopathy ~Likely from underlying cirrhosis of the liver. ~s/p Vitamin K and 3 units of FFP. ~INR 1.7 now. 4. Dyspnea and lower extremity edema ~IVFs on hold. ~Monitor for volume overload with FFP. 5. Dysphagia ~S/p EGD with atypical esophagitis - Biopsies were negative thus far, fungal stain pending. 6. HCV ~Work-up on hold for now. ~HIV negative. 7. Etoh abuse ~DT precautions. 8. Tobacco abuse D/w patient, Sheila (his girlfriend) post-procedure. -Aleta Chamberlain D.O.
[2017-06-29 17:55] LABS: INR 1.74 (0.77-1.02)
[2017-06-29] MEDS ORDERED: fentaNYL* 50 MCG/ML 2 ML VIAL (100 MCG VIAL) ONE (18:38)
[2017-06-29] MEDS ORDERED: Midazolam* 1 MG/ML 10 ML VIAL (10 MG) ONE (18:38)
[2017-06-29] MEDS: Albumin Human 25%* 25 GM/100 ML BTL IV SCH ×2 (22:01→22:05)
[2017-06-30] MEDS: Nystatin SUSPENSION* 100000 UNITS/ML 5 ML UDC PO SCH ×4 (09:07→22:26)
--- NOTE | 2017-06-30 10:48 | PRO ---
GASTROENTEROLOGY OPERATIVE REPORT: DATE OF PROCEDURE: 06/29/17 OPERATIVE PROCEDURE: Incomplete colonoscopy to 35 cm of the colon. ANESTHESIA: None. HISTORY OF PRESENT ILLNESS: Zachery is a pleasant 57-year-old gentleman who presented to [facility] with chronic diarrhea and weight loss. He was found to have an abnormal CAT scan revealing diffuse colitis, metastatic liver lesions, ascites, possible peritoneal carcinomatosis, and coagulopathy. He is here for a diagnostic colonoscopy. PREOPERATIVE DIAGNOSES: 1. Abnormal CT imaging. 2. Weight loss. 3. Chronic diarrhea. 4. Metastatic liver lesions with ascites and possible peritoneal carcinomatosis on CT. POSTOPERATIVE DIAGNOSES: 1. Severe colitis with decreased vascular pattern, erythema, severe edema, and patchy shallow to deep ulcerations up to 35 cm of the colon. 2. Unable to traverse through the mid and distal sigmoid colon due to severe edema and high risk of potential perforation due to luminal narrowing from severe colitis. 3. Fecal aspirate was obtained to rule out infectious colitis including C. diff , CMV, HSV, ova and parasites, stool culture, fecal leukocytes, and fecal lactoferrin. RECOMMENDATIONS: 1. Will follow up with path results and determine further plan of care as the patient's clinical course progresses. 2. We will discuss with the oncology team and primary team in regards to further workup in determining primary source of possible malignancy. 3. The patient's diet may be advanced to soft. 4. We will start albumin replacement therapy to be continued over the next 3 days for hypoalbuminemia and intravascular volume depletion. DESCRIPTION OF PROCEDURE: Colonoscopy was explained in detail to the patient. The risks, benefits, complications, alternatives, and possibilities of missed lesions were explained and understood. Complications included but were not limited to reaction to possible anesthesia, increased risk of bleeding, perforation, and aspiration. All questions were answered. The patient demonstrated understanding of the conversation. Informed consent was obtained. Next, the patient was brought to the endoscopy suite, placed in the left lateral recumbent position where blood pressure, cardiac, and oxygen monitors were applied. The patient was found to be not a good candidate for moderate anesthesia and monitored anesthesia care was not available the day of the procedure; therefore, procedure was performed without anesthesia. After the patient was appropriately maneuvered, a digital rectal exam was performed, which revealed normal sphincter tone. No palpable masses were appreciated. Next, a standard pediatric Olympus colonoscope was inserted through the rectum and maneuvered to 35 cm of the colon where significant luminal narrowing was visualized due to severe edema in this portion of the colon. This area was not traversed via the colonoscope as it was high risk for perforation. The colonoscope was subsequently withdrawn in the fashion that allowed adequate visualization of the bowel. The patient had decreased vascular pattern, significant erythema with bogginess and edema, shallow to deep ulcerations were scattered throughout the rectum and the sigmoid. Several cold forceps biopsies were obtained at 5 cm intervals starting at 35 cm to 10 cm of the colon. On retroflexion, there were no gross abnormalities noted. Air was then removed from the patient. Colonoscope was removed from the patient. The patient tolerated the procedure well, there were no immediate complications. After a period of observation, the patient was transferred back to the telemetry floor in stable condition. Thank you Dr. Kennedy for allowing us to participate in the care of your patient. If you should have any further questions or concerns, please do not hesitate to contact us. [id number]/CPS #: [id number] [place]
--- NOTE | 2017-06-30 11:43 | PN ---
Subjective Date of Service: 06/30/17 Interval History: 2-3 small liquid BM's today. Pt states they are red, as before. Appetite fair. Little pain. Objective Active Medications: Acetaminophen (Tylenol Tab*) 650 mg PO Q4H PRN PRN Reason: PAIN Last Admin: 06/28/17 14:29 Dose: 650 mg Albuterol/Ipratropium (Duoneb (Albuterol 2.5 Mg/Ipratropium 0.5 Mg)) 1 neb INH Q4H PRN PRN Reason: SOB/WHEEZING Last Admin: 06/28/17 07:29 Dose: 1 neb Albumin Human (Albumin Human 25%*) 25 gm in 100 mls @ 0 mls/hr IV Q24H RICKIE PRN Reason: Per Protocol Stop: 07/01/17 22:01 Last Admin: 06/29/17 22:05 Dose: 120 mls/hr Lorazepam (Ativan Tab(*)) 0.5 mg PO Q4H PRN PRN Reason: withdrawal Last Admin: 06/27/17 13:41 Dose: 0.5 mg Morphine Sulfate (Morphine Inj (Syringe)*) 2 mg IV Q4H PRN PRN Reason: PAIN - MILD Nystatin (Nystatin Suspension*) 500,000 units PO QID [facility] Stop: 07/04/17 07:24 Last Admin: 06/30/17 09:07 Dose: 500,000 units Vital Signs - 8 hr 06/30/17 06/30/17 06/30/17 07:31 07:50 09:57 Temperature 97.9 F Pulse Rate 96 96 Respiratory 16 22 16 Rate Blood Pressure 101/55 (mmHg) O2 Sat by Pulse 97 97 Oximetry Oxygen Devices in Use Now: None Appearance: Alert, standing by his bed. In good spirits. Looks comfortable. Eyes: No Scleral Icterus Abdominal: - - Distended, soft, non-tender. Nl BS. Extremities: No Clubbing, Cyanosis, - - 1-2+ edema BL. Neurological: Alert and Oriented x 3, NL Sensation Result Diagrams: 06/29/17 06:02 06/29/17 11:27 Additional Lab and Data: Lab Results 06/26/17 Range/Units 10:07 WBC 9.5 (3.5-10.8) 10^3/ul RBC 3.72 L (4.0-5.4) 10^6/ul Hgb 12.2 L (14.0-18.0) g/dl Hct 36 L (42-52) % MCV 96 H (80-94) fL MCH 33 H (27-31) pg MCHC 34 (31-36) g/dl RDW 15 (10.5-15) % Plt Count 118 L (150-450) 10^3/ul MPV 7 L (7.4-10.4) um3 Neut % (Auto) 72.1 (38-83) % Lymph % (Auto) 16.8 L (25-47) % [place] % (Auto) 8.8 (1-9) % Eos % (Auto) 2.1 (0-6) % Baso % (Auto) 0.2 (0-2) % Absolute Neuts (auto) 6.9 (1.5-7.7) 10^3/ul Absolute Lymphs (auto) 1.6 (1.0-4.8) 10^3/ul Absolute Monos (auto) 0.8 (0-0.8) 10^3/ul Absolute Eos (auto) 0.2 (0-0.6) 10^3/ul Absolute Basos (auto) 0 (0-0.2) 10^3/ul Absolute Nucleated RBC 0 10^3/ul Nucleated RBC % 0.3 Microbiology and Other Data: Microbiology 06/26/17 14:09 Stool Occult Blood (ROGELIO) - Final Stool Assess/Plan/Problems-Billing Assessment: 57 yo M with h/o ETOH and tobacco abuse with diarrhea, early satiety , problems swallowing and CT showing liver mets and pertitoneal lesions - Patient Problems (1) Liver mass Current Visit: Yes Status: Acute Code(s): R16.0 - HEPATOMEGALY, NOT ELSEWHERE CLASSIFIED SNOMED Code(s): 664785887 Comment: Pt has h/o Hep C and ETOH abuse appreciate oncology eval EGD showed esophageal erosions not typical of malignancy, hiatal hernia. Colonscopy 06/29 showed severe colitis, examination limited to the sigmoid. US abdomen ordered. Not clear if liver masses are not heterogenous cirrhosis. (2) Hyponatremia Current Visit: Yes Status: Acute Code(s): E87.1 - HYPO-OSMOLALITY AND HYPONATREMIA SNOMED Code(s): 39879408 Comment: Na+ 126 on 06/29/17. CMP 07/01. (3) Cirrhosis Current Visit: Yes Status: Acute Comment: Note low albumin and high INR. Vitamin K 5 mg x 2 given, also 3 U FFP on 06/29/17. CMP 06/13/17 ordered. (4) Colitis Current Visit: Yes Status: Acute Code(s): K52.9 - NONINFECTIVE GASTROENTERITIS AND COLITIS, UNSPECIFIED SNOMED Code(s): 35363711 Comment: I will discuss management with Dr. Chamberlain. (5) Long catheter in place Current Visit: Yes Status: Acute Code(s): Z92.89 - PERSONAL HISTORY OF OTHER MEDICAL TREATMENT SNOMED Code(s): 448403868 Comment: It was inserted at pt's request. Remove 06/30 and check PVR by bladder scan. Status and Disposition: Inpatient
--- NOTE | 2017-06-30 14:50 | RAD ---
HISTORY: Abnormal CT, rule out liver mass COMPARISONS: CT dated June 26, 2017 TECHNIQUE: Multiple transverse and longitudinal ultrasound images were obtained of the abdomen using grayscale, color Doppler, and spectral Doppler imaging. FINDINGS: Study somewhat technically limited secondary to patient condition. LIVER: The liver is heterogeneous in echotexture with a micronodular contour. The liver measures 17.2 cm in long axis. There is a hypoechoic lesion in the left lobe of liver adjacent to the portal vein at the bifurcation, corresponding to finding noted on previous CT examination. This measures 2.5 x 1.4 x 1.3 cm in size. The small lesions noted on CT of the right lobe of liver not well visualized on the current examination. There is normal hepatopedal flow of the portal vein on Doppler imaging. BILIARY TREE: There is mild dilatation of the common duct. The common duct measures 0.9 cm. GALLBLADDER: Multiple gallstones are noted. There is no gallbladder wall thickening or sonographic Tse sign. PANCREAS: The head of the pancreas is unremarkable. The tail of the pancreas is not well visualized secondary to overlying bowel gas. SPLEEN: The spleen is homogeneously enlarged. The spleen measures 16 x 9.5 x 8 cm. RIGHT KIDNEY: The right kidney is normal in shape, size, contour, and echogenicity. There is no hydronephrosis or nephrolithiasis. The right kidney measures 10.4 x 5.4 x 6.1 cm. LEFT KIDNEY: The left kidney is normal in shape, size, contour, and echogenicity. There is no hydronephrosis or nephrolithiasis. The left kidney measures 9.7 x 4.8 x 4.9 cm. AORTA AND IVC: The aorta and IVC are unremarkable. FLUID: There is a moderate amount ascites. OTHER FINDINGS: None. IMPRESSION: 1. CIRRHOTIC LIVER WITH A 2.5 CM MASS OF THE LEFT LOBE OF LIVER CORRESPONDING TO THE FINDING NOTED ON CT. GIVEN THE PRESENCE OF CIRRHOSIS, THIS IS CONCERNING FOR HEPATIC NEOPLASM, INCLUDING METASTATIC DISEASE OR HEPATOCELLULAR CARCINOMA. 2. SPLENOMEGALY SUGGESTIVE OF PORTAL HYPERTENSION. 3. ASCITES. 4. MILD BILIARY DILATATION. 5. CHOLELITHIASIS..
[2017-06-30 16:35] LABS: ABS Basophils 0 10^3/ul (0-0.2); ABS Eosinophils 0.1 10^3/ul (0-0.6); ABS Lymphocytes 1.3 10^3/ul (1.0-4.8); ABS Monocytes 0.6 10^3/ul (0-0.8); ABS Neutrophils 3.7 10^3/ul (1.5-7.7); ABS Nucleated RBC 0 10^3/ul; Eosinophil % 1.5 % (0-6); Hematocrit 30 % (42-52); Mean Corpuscular HGB Conc 34 g/dl (31-36); Mean Corpuscular Hemoglobin 32 pg (27-31); Mean Corpuscular Volume 96 fL (80-94); Mean Platelet Volume 7 um3 (7.4-10.4); Nucleated Red Blood Cells % 0.1; Platelet Count 63 10^3/ul (150-450); Red Blood Count 3.08 10^6/ul (4.0-5.4); Red Cell Distribution Width 15 % (10.5-15); White Blood Count 5.7 10^3/ul (3.5-10.8)
--- NOTE | 2017-06-30 18:54 | PN ---
Progress Note - Progress Note Date of Service: 06/30/17 - Gastroenterology Note: Patient seen and examined. Patient feeling much better today. Mild abdominal pain. Tolerating soft diet. No nausea/emesis. No longer requiring oxygen per NC. Vital Signs: Temp Pulse Resp BP Pulse Ox 98.1 F 99 20 107/51 98 06/30/17 15:43 06/30/17 15:43 06/30/17 15:43 06/30/17 15:43 06/30/17 15:43 GENERAL: AAOx3. NAD. HEENT: Anicteric, neck is supple. CV: RRR. PULM: CTAB: ABDOMEN: soft, NT/ND. EXT: B/L pitting +3 edema in lower extremities. Laboratory Last Values WBC 5.7 10^3/ul (3.5-10.8) 06/30/17 15:03 RBC 3.08 10^6/ul (4.0-5.4) L 06/30/17 15:03 Hgb 10.0 g/dl (14.0-18.0) L 06/30/17 15:03 Hct 30 % (42-52) L 06/30/17 15:03 MCV 96 fL (80-94) H 06/30/17 15:03 MCH 32 pg (27-31) H 06/30/17 15:03 MCHC 34 g/dl (31-36) 06/30/17 15:03 RDW 15 % (10.5-15) 06/30/17 15:03 Plt Count 63 10^3/ul (150-450) L D 06/30/17 15:03 MPV 7 um3 (7.4-10.4) L 06/30/17 15:03 Neut % (Auto) 65.1 % (38-83) 06/30/17 15:03 Lymph % (Auto) 23.0 % (25-47) L 06/30/17 15:03 [place] % (Auto) 10.1 % (1-9) H 06/30/17 15:03 Eos % (Auto) 1.5 % (0-6) 06/30/17 15:03 Baso % (Auto) 0.3 % (0-2) 06/30/17 15:03 Absolute Neuts (auto) 3.7 10^3/ul (1.5-7.7) 06/30/17 15:03 Absolute Lymphs (auto) 1.3 10^3/ul (1.0-4.8) 06/30/17 15:03 Absolute Monos (auto) 0.6 10^3/ul (0-0.8) 06/30/17 15:03 Absolute Eos (auto) 0.1 10^3/ul (0-0.6) 06/30/17 15:03 Absolute Basos (auto) 0 10^3/ul (0-0.2) 06/30/17 15:03 Absolute Nucleated RBC 0 10^3/ul 06/30/17 15:03 Nucleated RBC % 0.1 06/30/17 15:03 INR (Anticoag Therapy) 1.74 (0.77-1.02) H 06/29/17 17:30 Sodium 126 mmol/L (133-145) L 06/29/17 06:02 Potassium 4.3 mmol/L (3.5-5.0) 06/29/17 11:27 Chloride 105 mmol/L (101-111) 06/29/17 06:02 Carbon Dioxide 18 mmol/L (22-32) L 06/29/17 06:02 Anion Gap 3 mmol/L (2-11) 06/29/17 06:02 BUN 7 mg/dL (6-24) 06/29/17 06:02 Creatinine 0.43 mg/dL (0.67-1.17) L 06/29/17 06:02 Est GFR ( Amer) 264.2 (>60) 06/29/17 06:02 Est GFR (Non-Af Amer) 205.5 (>60) 06/29/17 06:02 BUN/Creatinine Ratio 16.3 (8-20) 06/29/17 06:02 Glucose 91 mg/dL (70-100) 06/29/17 06:02 Lactic Acid 1.9 mmol/L (0.5-2.0) 06/26/17 13:53 Calcium 7.5 mg/dL (8.6-10.3) L 06/29/17 06:02 Magnesium 1.9 mg/dL (1.9-2.7) 06/27/17 16:38 Total Bilirubin 1.50 mg/dL (0.2-1.0) H 06/28/17 08:03 AST 88 U/L (13-39) H 06/28/17 08:03 ALT 43 U/L (7-52) 06/28/17 08:03 Alkaline Phosphatase 70 U/L (34-104) 06/28/17 08:03 Ammonia 49 mol/L (16-53) 06/26/17 13:13 C-Reactive Protein 34.45 mg/L (< 5.00) H 06/26/17 10:07 Total Protein 6.4 g/dL (6.4-8.9) 06/28/17 08:03 Albumin 1.4 g/dL (3.2-5.2) L 06/28/17 08:03 Globulin 5.0 g/dL (2-4) H 06/28/17 08:03 Albumin/Globulin Ratio 0.3 (1-3) L 06/28/17 08:03 Lipase 90 U/L (11.0-82.0) H 06/26/17 10:07 Tumor Marker AFP 15 ng/mL (<6.0) H 06/27/17 16:39 Carcinoembryonic Ag 8.8 ng/mL (0.1-5.0) H 06/26/17 10:07 CA 19-9 Antigen 109 U/mL (<35) H 06/26/17 10:07 Fluid Source Peritoneal fluid 06/29/17 09:00 Fluid Volume 7.0 mL 06/29/17 09:00 Fluid Color Yellow 06/29/17 09:00 Fluid Appearance Cloudy 06/29/17 09:00 Fluid WBC 390 /mcL ([id number]) 06/29/17 09:00 Fluid RBC 78 /mcL 06/29/17 09:00 Fluid Tot Cell Count 100 06/29/17 09:00 Fluid Neutrophils 32 % 06/29/17 09:00 Fluid Lymphocytes 43 % 06/29/17 09:00 Fluid Monocytes 25 % 06/29/17 09:00 Fluid Other Cells 7 06/29/17 09:00 Fluid Cell Count Rvw By 06/29/17 09:00 Fluid Glucose 108 mg/dL 06/29/17 09:00 Fluid Total Protein 0.6 g/dL 06/29/17 09:00 Fluid LDH 26 U/L 06/29/17 09:00 Proteinase 3 (PR3) < 0.2 U 06/26/17 13:31 Myeloperoxidase Ab < 0.2 U 06/26/17 13:31 Anti-Endomysial Ab Negative (Negative) 06/26/17 13:31 Tiss Transglutamin IgG 3.3 U/mL 06/26/17 13:31 Tiss Transglutamin IgA <1.2 U/mL 06/26/17 13:31 Anti-Gliadin IgG Ab <10.0 U 06/26/17 13:31 Anti-Gliadin IgA Ab <10.0 U 06/26/17 13:31 HIV 1&2 Antibody Nonreactive (Nonreactive) 06/27/17 16:39 Parasite Exam See comment 06/26/17 11:30 Miscellaneous Test See comment 06/27/17 16:38 Blood Type B Positive 06/29/17 06:02 Antibody Screen Negative 06/29/17 06:02 57 yo male with untreated HCV, Etoh and tobacco abuse, chronic diarrhea and abnormal CT imaging with ascites, metastatic liver lesions, possible peritoneal carcinomatosis, and colitis. 1. Chronic diarrhea with colitis on the colon on CT imaging. ~Incomplete colonoscopy up to 35cm of the rectum due to severe colitis with edema, erythema and ulcerations s/p biopsies and fecal aspirate. High risk for perforation due to severe colitis. ~Await biopsies. 2. Metastatic liver lesions with ascites with possible peritoneal carcinomatosis. ~s/p paracentesis by onc with 2L of fluid removed. Cytology pending. Negative for SBP. ~Albumin 25% 25g for 3 days for hypoalbuminemia and intravascular volume depletion. ~Ultrasound with 2.7 cm liver lesion in left lobe. Dr. Kennedy will d/w IR to see if biopsy of lesion may be attempted. 3. Coagulopathy ~Likely from underlying cirrhosis of the liver. ~s/p Vitamin K and 3 units of FFP. ~INR 1.7 now. 4. Dyspnea and lower extremity edema ~Dyspnea has resolved but lower extremity edema is persistent. ~IVFs on hold. ~Monitor for volume overload. ~D/w primary need for diuretics (lasix and spironolactone). 5. Dysphagia ~S/p EGD with atypical esophagitis - Biopsies were negative thus far, fungal stain pending. 6. HCV ~Work-up on hold for now. ~HIV negative. 7. Etoh abuse ~DT precautions. 8. Tobacco abuse D/w Dr. Kennedy. -Aleta Chamberlain D.O.
[2017-06-30] MEDS: Albumin Human 25%* 25 GM/100 ML BTL IV SCH (22:16)
[2017-07-01 09:11] LABS: ABS Basophils 0 10^3/ul (0-0.2); ABS Eosinophils 0.1 10^3/ul (0-0.6); ABS Lymphocytes 1.3 10^3/ul (1.0-4.8); ABS Monocytes 0.3 10^3/ul (0-0.8); ABS Neutrophils 2.3 10^3/ul (1.5-7.7); ABS Nucleated RBC 0 10^3/ul; Eosinophil % 2.3 % (0-6); Hematocrit 29 % (42-52); Hemoglobin 9.9 g/dl (14.0-18.0); Lymphocyte % 31.3 % (25-47); Mean Corpuscular HGB Conc 34 g/dl (31-36); Mean Corpuscular Hemoglobin 33 pg (27-31); Mean Corpuscular Volume 98 fL (80-94); Mean Platelet Volume 7 um3 (7.4-10.4); Nucleated Red Blood Cells % 0.3; Platelet Count 59 10^3/ul (150-450); Red Blood Count 3.01 10^6/ul (4.0-5.4); Red Cell Distribution Width 16 % (10.5-15)
[2017-07-01 09:18] LABS: EGFR Non-African American 185.4 (>60)
--- NOTE | 2017-07-01 10:00 | PN ---
Subjective Date of Service: 07/01/17 Interval History: No new c/o. [place] or no pain. Objective Active Medications: Acetaminophen (Tylenol Tab*) 650 mg PO Q4H PRN PRN Reason: PAIN Last Admin: 06/28/17 14:29 Dose: 650 mg Albuterol/Ipratropium (Duoneb (Albuterol 2.5 Mg/Ipratropium 0.5 Mg)) 1 neb INH Q4H PRN PRN Reason: SOB/WHEEZING Last Admin: 06/28/17 07:29 Dose: 1 neb Albumin Human (Albumin Human 25%*) 25 gm in 100 mls @ 0 mls/hr IV Q24H RICKIE PRN Reason: Per Protocol Stop: 07/01/17 22:01 Last Admin: 06/30/17 22:16 Dose: 120 mls/hr Lorazepam (Ativan Tab(*)) 0.5 mg PO Q4H PRN PRN Reason: withdrawal Last Admin: 06/27/17 13:41 Dose: 0.5 mg Morphine Sulfate (Morphine Inj (Syringe)*) 2 mg IV Q4H PRN PRN Reason: PAIN - MILD Nystatin (Nystatin Suspension*) 500,000 units PO QID COUNT [facility]CLUDES [facility] Stop: 07/04/17 07:24 Last Admin: 06/30/17 22:26 Dose: 500,000 units Vital Signs - 8 hr 07/01/17 07/01/17 02:17 08:13 Temperature 97.7 F 97.9 F Pulse Rate 91 87 Respiratory 16 20 Rate Blood Pressure 99/62 96/61 (mmHg) O2 Sat by Pulse 99 100 Oximetry Oxygen Devices in Use Now: None Appearance: Alert, partly up in bed. In good spirits. Looks comfortable. Eyes: No Scleral Icterus Extremities: No Clubbing, Cyanosis, - - 1-2+ edema BL Skin: No Rash or Ulcers, No Nodules or Sclerosis, - Neurological: Alert and Oriented x 3, NL Sensation Result Diagrams: 07/01/17 08:27 07/01/17 08:27 Additional Lab and Data: Lab Results 06/26/17 Range/Units 10:07 WBC 9.5 (3.5-10.8) 10^3/ul RBC 3.72 L (4.0-5.4) 10^6/ul Hgb 12.2 L (14.0-18.0) g/dl Hct 36 L (42-52) % MCV 96 H (80-94) fL MCH 33 H (27-31) pg MCHC 34 (31-36) g/dl RDW 15 (10.5-15) % Plt Count 118 L (150-450) 10^3/ul MPV 7 L (7.4-10.4) um3 Neut % (Auto) 72.1 (38-83) % Lymph % (Auto) 16.8 L (25-47) % [place] % (Auto) 8.8 (1-9) % Eos % (Auto) 2.1 (0-6) % Baso % (Auto) 0.2 (0-2) % Absolute Neuts (auto) 6.9 (1.5-7.7) 10^3/ul Absolute Lymphs (auto) 1.6 (1.0-4.8) 10^3/ul Absolute Monos (auto) 0.8 (0-0.8) 10^3/ul Absolute Eos (auto) 0.2 (0-0.6) 10^3/ul Absolute Basos (auto) 0 (0-0.2) 10^3/ul Absolute Nucleated RBC 0 10^3/ul Nucleated RBC % 0.3 Microbiology and Other Data: Microbiology 06/26/17 14:09 Stool Occult Blood (ROGELIO) - Final Stool Assess/Plan/Problems-Billing Assessment: 57 yo M with h/o ETOH and tobacco abuse with diarrhea, early satiety , problems swallowing and CT showing liver mets and pertitoneal lesions - Patient Problems (1) Liver mass Current Visit: Yes Status: Acute Code(s): R16.0 - HEPATOMEGALY, NOT ELSEWHERE CLASSIFIED SNOMED Code(s): 110383908 Comment: Pt has h/o Hep C and ETOH abuse appreciate oncology eval EGD showed esophageal erosions not typical of malignancy, hiatal hernia. Colonscopy 06/29 showed severe colitis, examination limited to the sigmoid. US abdomen showed a 2.5 cm liver mass in L lobe. I will talk to Dr. Hills on Monday 07/03 about a biopsy. (2) Hyponatremia Current Visit: Yes Status: Acute Code(s): E87.1 - HYPO-OSMOLALITY AND HYPONATREMIA SNOMED Code(s): 05511957 Comment: Na+ 132 on 07/01/17. (3) Cirrhosis Current Visit: Yes Status: Acute Comment: Note low albumin and high INR. Vitamin K 5 mg x 2 given, also 3 U FFP on 06/29/17. Third day of albumin infusion 07/01/17. (4) Colitis Current Visit: Yes Status: Acute Code(s): K52.9 - NONINFECTIVE GASTROENTERITIS AND COLITIS, UNSPECIFIED SNOMED Code(s): 46518667 Comment: I will discuss management with Dr. Chamberlain. Bx report pending as of 07/01. (5) Long catheter in place Current Visit: Yes Status: Acute Code(s): Z92.89 - PERSONAL HISTORY OF OTHER MEDICAL TREATMENT SNOMED Code(s): 974813825 Comment: It was inserted at pt's request. Remove 06/30 and check PVR by bladder scan. Status and Disposition: Inpatient
[2017-07-01] MEDS: Nystatin SUSPENSION* 100000 UNITS/ML 5 ML UDC PO SCH ×4 (10:34→22:12)
[2017-07-01] MEDS: Spironolactone TAB* 25 MG PO SCH (15:16)
[2017-07-01] MEDS: Furosemide TAB* 20 MG PO SCH (15:16)
[2017-07-01] MEDS: Albuterol/Ipratropium NEB.SOL* Albuterol 2.5 MG/Ipratropium 0.5 MG 3 ML INH PRN (20:21)
[2017-07-01] MEDS: Albumin Human 25%* 25 GM/100 ML BTL IV SCH (22:03)
[2017-07-02] MEDS: Nystatin SUSPENSION* 100000 UNITS/ML 5 ML UDC PO SCH ×4 (08:38→21:22)
[2017-07-02] MEDS: Spironolactone TAB* 25 MG PO SCH (08:38)
[2017-07-02] MEDS: Furosemide TAB* 20 MG PO SCH (08:38)
--- NOTE | 2017-07-02 12:47 | PN ---
Progress Note - Progress Note Date of Service: 07/02/17 - Gastroenterology Note: Patient seen and examined. No new overnight issues. No abdominal pain. Tolerating diet. No nausea/emesis. Less frequent bowel movements with some form to them now. Minimal blood-tinged stools. No fevers/chills. Vital Signs: Temp Pulse Resp BP Pulse Ox 97.8 F 96 16 102/58 97 07/02/17 07:20 07/02/17 07:38 07/02/17 08:00 07/02/17 07:40 07/02/17 07:38 GENERAL: NAD, mildly icteric B/L. HEENT: MMM. CV: RRR. PULM: Coarse breath sounds in lower bases with a few expiratory wheezes. ABDOMEN: Soft, NT, mild distention. +BS. EXTREMITIES: B/L lower extremity pitting edema to thighs. Laboratory Last Values WBC 4.0 10^3/ul (3.5-10.8) 07/01/17 08:27 RBC 3.01 10^6/ul (4.0-5.4) L 07/01/17 08:27 Hgb 9.9 g/dl (14.0-18.0) L 07/01/17 08:27 Hct 29 % (42-52) L 07/01/17 08:27 MCV 98 fL (80-94) H 07/01/17 08:27 MCH 33 pg (27-31) H 07/01/17 08:27 MCHC 34 g/dl (31-36) 07/01/17 08:27 RDW 16 % (10.5-15) H 07/01/17 08:27 Plt Count 59 10^3/ul (150-450) L 07/01/17 08:27 MPV 7 um3 (7.4-10.4) L 07/01/17 08:27 Neut % (Auto) 57.6 % (38-83) 07/01/17 08:27 Lymph % (Auto) 31.3 % (25-47) 07/01/17 08:27 [place] % (Auto) 8.5 % (1-9) 07/01/17 08:27 Eos % (Auto) 2.3 % (0-6) 07/01/17 08:27 Baso % (Auto) 0.3 % (0-2) 07/01/17 08:27 Absolute Neuts (auto) 2.3 10^3/ul (1.5-7.7) 07/01/17 08:27 Absolute Lymphs (auto) 1.3 10^3/ul (1.0-4.8) 07/01/17 08:27 Absolute Monos (auto) 0.3 10^3/ul (0-0.8) 07/01/17 08:27 Absolute Eos (auto) 0.1 10^3/ul (0-0.6) 07/01/17 08:27 Absolute Basos (auto) 0 10^3/ul (0-0.2) 07/01/17 08:27 Absolute Nucleated RBC 0 10^3/ul 07/01/17 08:27 Nucleated RBC % 0.3 07/01/17 08:27 INR (Anticoag Therapy) 1.74 (0.77-1.02) H 06/29/17 17:30 Sodium 132 mmol/L (133-145) L 07/01/17 08:27 Potassium 3.4 mmol/L (3.5-5.0) L 07/01/17 08:27 Chloride 106 mmol/L (101-111) 07/01/17 08:27 Carbon Dioxide 19 mmol/L (22-32) L 07/01/17 08:27 Anion Gap 7 mmol/L (2-11) 07/01/17 08:27 BUN 8 mg/dL (6-24) 07/01/17 08:27 Creatinine 0.47 mg/dL (0.67-1.17) L 07/01/17 08:27 Est GFR ( Amer) 238.5 (>60) 07/01/17 08:27 Est GFR (Non-Af Amer) 185.4 (>60) 07/01/17 08:27 BUN/Creatinine Ratio 17.0 (8-20) 07/01/17 08:27 Glucose 79 mg/dL (70-100) 07/01/17 08:27 Lactic Acid 1.9 mmol/L (0.5-2.0) 06/26/17 13:53 Calcium 7.4 mg/dL (8.6-10.3) L 07/01/17 08:27 Magnesium 1.9 mg/dL (1.9-2.7) 06/27/17 16:38 Total Bilirubin 2.00 mg/dL (0.2-1.0) H 07/01/17 08:27 AST 64 U/L (13-39) H 07/01/17 08:27 ALT 38 U/L (7-52) 07/01/17 08:27 Alkaline Phosphatase 67 U/L (34-104) 07/01/17 08:27 Ammonia 49 mol/L (16-53) 06/26/17 13:13 C-Reactive Protein 34.45 mg/L (< 5.00) H 06/26/17 10:07 Total Protein 6.0 g/dL (6.4-8.9) L 07/01/17 08:27 Albumin 2.1 g/dL (3.2-5.2) L 07/01/17 08:27 Globulin 3.9 g/dL (2-4) 07/01/17 08:27 Albumin/Globulin Ratio 0.5 (1-3) L 07/01/17 08:27 Lipase 90 U/L (11.0-82.0) H 06/26/17 10:07 Tumor Marker AFP 15 ng/mL (<6.0) H 06/27/17 16:39 Carcinoembryonic Ag 8.8 ng/mL (0.1-5.0) H 06/26/17 10:07 CA 19-9 Antigen 109 U/mL (<35) H 06/26/17 10:07 Fluid Source Peritoneal fluid 06/29/17 09:00 Fluid Volume 7.0 mL 06/29/17 09:00 Fluid Color Yellow 06/29/17 09:00 Fluid Appearance Cloudy 06/29/17 09:00 Fluid WBC 390 /mcL (0-446419) 06/29/17 09:00 Fluid RBC 78 /mcL 06/29/17 09:00 Fluid Tot Cell Count 100 06/29/17 09:00 Fluid Neutrophils 32 % 06/29/17 09:00 Fluid Lymphocytes 43 % 06/29/17 09:00 Fluid Monocytes 25 % 06/29/17 09:00 Fluid Other Cells 7 06/29/17 09:00 Fluid Cell Count Rvw By 06/29/17 09:00 Fluid Glucose 108 mg/dL 06/29/17 09:00 Fluid Total Protein 0.6 g/dL 06/29/17 09:00 Fluid LDH 26 U/L 06/29/17 09:00 Proteinase 3 (PR3) < 0.2 U 06/26/17 13:31 Myeloperoxidase Ab < 0.2 U 06/26/17 13:31 Anti-Endomysial Ab Negative (Negative) 06/26/17 13:31 Tiss Transglutamin IgG 3.3 U/mL 06/26/17 13:31 Tiss Transglutamin IgA <1.2 U/mL 06/26/17 13:31 Anti-Gliadin IgG Ab <10.0 U 06/26/17 13:31 Anti-Gliadin IgA Ab <10.0 U 06/26/17 13:31 HIV 1&2 Antibody Nonreactive (Nonreactive) 06/27/17 16:39 Parasite Exam See comment 06/26/17 11:30 Miscellaneous Test See comment 06/27/17 16:38 Blood Type B Positive 06/29/17 06:02 Antibody Screen Negative 06/29/17 06:02 57 yo male with untreated HCV, Etoh and tobacco abuse, chronic diarrhea and abnormal CT imaging with ascites, metastatic liver lesions, possible peritoneal carcinomatosis, and diffuse colitis. 1. Chronic diarrhea with colitis on the colon on CT imaging. ~Incomplete colonoscopy up to 35cm of the rectum due to severe colitis with edema, erythema and ulcerations s/p biopsies and fecal aspirate. High risk for perforation due to severe colitis. ~Await biopsies from colonoscopy. ~Stool aspirate was positive for Klebsiella oxtoca. He was placed on abx back in early May 2017 for pneumonia and earlier this month for his diarrhea. This organism can cause antibiotic-induced hemorrhagic colitis. Treatment is not to place on abx as this is the etiology of his hemorrhagic colitis. His diarrhea appears to be improving slowly. Continue to monitor. ~Will need a complete colonoscopy once colitis resolves. 2. Metastatic liver lesions with ascites with possible peritoneal carcinomatosis seen on CT imaging ~s/p paracentesis by onc with 2L of fluid removed. Cytology is negative for malignancy and negative for SBP. ~Albumin 25% 25g for 3 days for hypoalbuminemia and intravascular volume depletion - completed. ~Ultrasound with 2.7 cm liver lesion in left lobe. Dr. Kennedy will d/w IR to see if biopsy of lesion may be attempted. 3. Coagulopathy with thrombocytopenia ~Likely from underlying cirrhosis of the liver. ~s/p Vitamin K and 3 units of FFP. ~Last INR was 1.7. ~Recommend re-checking tomorrow morning in case FFP is needed for possible liver bx. 4. Dyspnea and lower extremity edema ~Dyspnea has resolved but lower extremity edema is present (appears to have slightly improved with albumin replacement). ~IVFs on hold. ~Monitor for volume overload. ~Encouraged aggressive use of incentive spirometry this morning. ~D/w primary need for diuretics (lasix and/or spironolactone). 5. Elevated LFTs ~Likely from HCV, underling liver cirrhosis, and possible mets. ~Work-up as outpatient. 6. Hyponatremia ~Improving. 7. Hypokalemia ~Mild hypokalemia ~Continue to monitor ~Recommend checking Magnesium level. 8. Dysphagia - resolved. ~S/p EGD with atypical esophagitis - Biopsies were negative thus far, fungal stain pending. 9. HCV ~Work-up on hold for now. ~HIV negative. 10. Etoh abuse ~DT precautions. 11. Tobacco abuse D/w patient's daughter and son at bedside this am. Thank you Dr. Kennedy for allowing us to participate in the care of your patient. If you should have any further questions or concerns, please do not hesitate to contact us. Aleta Chamberlain D.O.
--- NOTE | 2017-07-02 14:38 | PN ---
Subjective Date of Service: 07/02/17 Interval History: C/O abdominal "bloating". Appetite OK. He thinks his pedal edema is worse. Objective Active Medications: Acetaminophen (Tylenol Tab*) 650 mg PO Q4H PRN PRN Reason: PAIN Last Admin: 06/28/17 14:29 Dose: 650 mg Albuterol/Ipratropium (Duoneb (Albuterol 2.5 Mg/Ipratropium 0.5 Mg)) 1 neb INH Q4H PRN PRN Reason: SOB/WHEEZING Last Admin: 07/01/17 20:21 Dose: 1 neb Furosemide (Lasix Tab*) 20 mg PO DAILY [facility] [place] Last Admin: 07/02/17 08:38 Dose: 20 mg Lorazepam (Ativan Tab(*)) 0.5 mg PO Q4H PRN PRN Reason: withdrawal Last Admin: 06/27/17 13:41 Dose: 0.5 mg Morphine Sulfate (Morphine Inj (Syringe)*) 2 mg IV Q4H PRN PRN Reason: PAIN - MILD Nystatin (Nystatin Suspension*) 500,000 units PO QID [facility] [place] Stop: 07/04/17 07:24 Last Admin: 07/02/17 13:21 Dose: 500,000 units Spironolactone (Aldactone Tab*) 25 mg PO DAILY [facility] [place] Last Admin: 07/02/17 08:38 Dose: 25 mg Vital Signs - 8 hr 07/02/17 07/02/17 07/02/17 07:20 07:38 07:40 Temperature 97.8 F Pulse Rate 87 96 Respiratory 16 16 Rate Blood Pressure 86/46 102/58 (mmHg) O2 Sat by Pulse 98 97 Oximetry 07/02/17 07/02/17 08:00 11:11 Temperature 97.6 F Pulse Rate 92 Respiratory 16 16 Rate Blood Pressure 99/60 (mmHg) O2 Sat by Pulse 100 Oximetry Oxygen Devices in Use Now: None Appearance: Alert, partly up in bed. In good spirits. Looks comfortable. Eyes: No Scleral Icterus Abdominal: - - distended, soft, not tender, nl BS Extremities: No Clubbing, Cyanosis, - - 1+ edema BL Skin: No Nodules or Sclerosis, - - many take away attendant angiomata around neck Neurological: Alert and Oriented x 3, NL Sensation Result Diagrams: 07/01/17 08:27 07/01/17 08:27 Additional Lab and Data: Lab Results 06/26/17 Range/Units 10:07 WBC 9.5 (3.5-10.8) 10^3/ul RBC 3.72 L (4.0-5.4) 10^6/ul Hgb 12.2 L (14.0-18.0) g/dl Hct 36 L (42-52) % MCV 96 H (80-94) fL MCH 33 H (27-31) pg MCHC 34 (31-36) g/dl RDW 15 (10.5-15) % Plt Count 118 L (150-450) 10^3/ul MPV 7 L (7.4-10.4) um3 Neut % (Auto) 72.1 (38-83) % Lymph % (Auto) 16.8 L (25-47) % [place] % (Auto) 8.8 (1-9) % Eos % (Auto) 2.1 (0-6) % Baso % (Auto) 0.2 (0-2) % Absolute Neuts (auto) 6.9 (1.5-7.7) 10^3/ul Absolute Lymphs (auto) 1.6 (1.0-4.8) 10^3/ul Absolute Monos (auto) 0.8 (0-0.8) 10^3/ul Absolute Eos (auto) 0.2 (0-0.6) 10^3/ul Absolute Basos (auto) 0 (0-0.2) 10^3/ul Absolute Nucleated RBC 0 10^3/ul Nucleated RBC % 0.3 Microbiology and Other Data: Microbiology 06/26/17 14:09 Stool Occult Blood (ROGELIO) - Final Stool Assess/Plan/Problems-Billing Assessment: 57 yo M with h/o ETOH and tobacco abuse with diarrhea, early satiety , problems swallowing and CT showing liver mets and pertitoneal lesions - Patient Problems (1) Liver mass Current Visit: Yes Status: Acute Code(s): R16.0 - HEPATOMEGALY, NOT ELSEWHERE CLASSIFIED SNOMED Code(s): 276030306 Comment: Pt has h/o Hep C and ETOH abuse appreciate oncology eval EGD showed esophageal erosions not typical of malignancy, hiatal hernia. Colonscopy 06/29 showed severe colitis, examination limited to the sigmoid. US abdomen showed a 2.5 cm liver mass in L lobe. I will talk to Dr. Hills on Monday 07/03 about a biopsy. (2) Hyponatremia Current Visit: Yes Status: Acute Code(s): E87.1 - HYPO-OSMOLALITY AND HYPONATREMIA SNOMED Code(s): 53435118 Comment: Na+ 132 on 07/01/17. (3) Cirrhosis Current Visit: Yes Status: Acute Comment: Note low albumin and high INR. Vitamin K 5 mg x 2 given, also 3 U FFP on 06/29/17. Third day of albumin infusion 07/01/17. (4) Colitis Current Visit: Yes Status: Acute Code(s): K52.9 - NONINFECTIVE GASTROENTERITIS AND COLITIS, UNSPECIFIED SNOMED Code(s): 28278722 Comment: I will discuss management with Dr. Chamberlain. Bx report pending as of 07/01. (5) Long catheter in place Current Visit: Yes Status: Acute Code(s): Z92.89 - PERSONAL HISTORY OF OTHER MEDICAL TREATMENT SNOMED Code(s): 764775483 Comment: It was inserted at pt's request. Remove 06/30 and check PVR by bladder scan. Status and Disposition: Inpatient
[2017-07-02] MEDS: Albuterol/Ipratropium NEB.SOL* Albuterol 2.5 MG/Ipratropium 0.5 MG 3 ML INH PRN (18:13)
[2017-07-03 06:57] LABS: ABS Basophils 0 10^3/ul (0-0.2); ABS Eosinophils 0.1 10^3/ul (0-0.6); ABS Lymphocytes 1.4 10^3/ul (1.0-4.8); ABS Monocytes 0.4 10^3/ul (0-0.8); ABS Neutrophils 2.9 10^3/ul (1.5-7.7); ABS Nucleated RBC 0 10^3/ul; Eosinophil % 1.7 % (0-6); Hematocrit 28 % (42-52); Hemoglobin 9.6 g/dl (14.0-18.0); Lymphocyte % 28.8 % (25-47); Mean Corpuscular HGB Conc 35 g/dl (31-36); Mean Corpuscular Hemoglobin 34 pg (27-31); Mean Corpuscular Volume 97 fL (80-94); Mean Platelet Volume 7 um3 (7.4-10.4); Nucleated Red Blood Cells % 0.2; Platelet Count 53 10^3/ul (150-450); Red Blood Count 2.85 10^6/ul (4.0-5.4); Red Cell Distribution Width 16 % (10.5-15); White Blood Count 4.8 10^3/ul (3.5-10.8)
[2017-07-03 07:11] LABS: INR 2.85 (0.77-1.02)
[2017-07-03] MEDS: Spironolactone TAB* 25 MG PO SCH (08:50)
[2017-07-03] MEDS: Furosemide TAB* 20 MG PO SCH (08:50)
[2017-07-03] MEDS: Nystatin SUSPENSION* 100000 UNITS/ML 5 ML UDC PO SCH ×2 (08:51→14:09)
[2017-07-03] MEDS ORDERED: Gadoxetate* (CONTRAST) 181.43 MG/ML 10 ML SDV IV ONE (13:12)
[2017-07-03 14:20] VITALS: BP 97/55
[2017-07-03] MEDS ORDERED: Omeprazole CAP* 20 MG PO SCH (14:45)
[2017-07-03] MEDS ORDERED: Furosemide TAB* 40 MG PO SCH (15:19)
--- NOTE | 2017-07-03 16:26 | RAD ---
Indication: Cirrhosis with multiple focal hepatic lesions concerning for primary or metastatic cancer. MRI requested to assess for most suspicious lesion for which to target image guided biopsy. Comparison: June 30, 2017 ultrasound and June 26, 2017 CT. Technique: CodeStreeta 1.5 Annabelle [id number] with GEM suite. MRI liver/abdomen without and with contrast. 7 mL Eovist administered IV. Multiphasic angiographic phase and 20 minute delayed hepatocellular phase postcontrast series obtained. Report: 15 cm cephalocaudal liver with nodular surface contour. Negative for foci of restricted diffusion at the liver. Gross diffuse decrease in signal intensity at the liver from in to out of phase T1-weighted series consistent with fatty infiltration. 2.2 cm maximum dimension region of absence of drop in signal intensity anterior to the RIGHT portal vein devoid of abnormal enhancement corresponding with the hypoechoic lesion on June 30, 2017 ultrasound region of fatty sparing. No suspicious focal hepatic lesions evident. Normal contrast opacification of the portal vein. Extensive portosystemic shunts most prominent at Morison's pouch and the RIGHT retroperitoneum. Esophageal varices noted. Negative for biliary dilatation. Dependent stones at the gallbladder without additional MRI abnormality of the gallbladder. Unremarkable pancreas. 16.7 cm cephalocaudal enlarged spleen without focal lesions. Small splenule at the splenic hilum. Moderate diffuse ascites. Negative for lymphadenopathy. Normal adrenal glands. Symmetric nephrograms and pyelograms. IMPRESSION: 1. Cirrhotic liver morphology without suspicious focal hepatic lesions. Hepatosteatosis with focal nodular sparing at the RIGHT hepatic lobe corresponding with the visualized focal relative hypoechoic lesion on June 30, 2017 ultrasound. 2. Evidence for portal hypertension including splenomegaly, extensive portosystemic shunts, and moderate ascites. Results discussed with Dr. Kennedy 07/03/2017 2:10 PM EST
[2017-07-04] MEDS ORDERED: Spironolactone TAB* 25 MG PO SCH (09:00)
--- NOTE | 2017-07-04 14:15 | DS ---
CC: CALVIN Coffey; Dr. English * DISCHARGE SUMMARY: DATE OF ADMISSION: DATE OF DISCHARGE: 07/03/17 HISTORY OF PRESENT ILLNESS: This 57-year-old man presented with diarrhea and weight loss for 1 month. He complained of poor appetite. He is having some diarrhea and liquid stools. He may have lost about 15 pounds. The patient had a prior diagnosis of liver cirrhosis 8 years ago, but did not follow up with anyone and did not know much about the disease at all. The patient is known to have hepatitis C and have a history of chronic alcoholism. CT scan was suggestive of hepatic masses. He had a paracentesis of about 2 L. There were no malignant cells seen. He underwent colonoscopy. He was prepared for this by getting 3 units of fresh frozen plasma. Unfortunately, the colonoscope could not be passed past the rectosigmoid due to swelling and/or inflammation. There was ulceration in the rectum of a nonspecific type. He had the EGD prior to that, which was also showed erosions in the esophagus. The pathologic reports from all of these showed inflammation, but no dysplasia or neoplasia. The patient was given 3 days of intravenous albumin. He was seen in consultation by the gas pipe layer as well as Oncology. He was started on furosemide and spironolactone. He did not respond significantly to a small dose and the dose is being doubled at the time of discharge. He was instructed to weigh himself every day, write down the weight, and to call his doctor if the weight went up or down more than 3 pounds in any given 7-day period. FINAL DIAGNOSES: 1. Cirrhosis of the liver. 2. Hyponatremia. 3. Colitis. DISCHARGE MEDICATIONS: 1. Furosemide 20 mg 2 tablets daily. 2. Omeprazole 20 mg 1 daily. 3. Spironolactone 25 mg 2 tablets daily. The patient will have a BMP in about 4 days. [id number]/CPS #: [id number] MTDD
== END 2017-07-03 17:55 | disposition home or self-care (01) | DRG 280 ==
LOC: ED 08:44 → MED 13:31
PROVIDERS: ADMIT Internal Medicine; ATTEND Internal Medicine
PROC: 0DB58ZX Excision of Esophagus, Via Natural or Artificial Opening Endoscopic, Diagnostic (ICD-10-PCS; 2017-06-27)
PROC: 0DD58ZX Extraction of Esophagus, Via Natural or Artificial Opening Endoscopic, Diagnostic (ICD-10-PCS; 2017-06-27)
PROC: 0T9B70Z Drainage of Bladder with Drainage Device, Via Natural or Artificial Opening (ICD-10-PCS; principal; 2017-06-29)
PROC: 30233K1 Transfusion of Nonautologous Frozen Plasma into Peripheral Vein, Percutaneous Approach (ICD-10-PCS; 2017-06-29)
PROC: 0DBE8ZX Excision of Large Intestine, Via Natural or Artificial Opening Endoscopic, Diagnostic (ICD-10-PCS; 2017-06-29)
PROC: 0D9E8ZX Drainage of Large Intestine, Via Natural or Artificial Opening Endoscopic, Diagnostic (ICD-10-PCS; 2017-06-29)
PROC: 0W9G3ZZ Drainage of Peritoneal Cavity, Percutaneous Approach (ICD-10-PCS; 2017-06-29)
DX: K70.31 Alcoholic cirrhosis of liver with ascites (principal); E87.1 Hypo-osmolality and hyponatremia; K70.40 Alcoholic hepatic failure without coma; D68.9 Coagulation defect, unspecified; D69.6 Thrombocytopenia, unspecified; R64 Cachexia; E88.09 Other disorders of plasma-protein metabolism, not elsewhere classified; K22.10 Ulcer of esophagus without bleeding; E86.0 Dehydration; B19.20 Unspecified viral hepatitis C without hepatic coma; K52.9 Noninfective gastroenteritis and colitis, unspecified; E87.6 Hypokalemia; R40.2412 Glasgow coma scale score 13-15, at arrival to emergency department; R16.0 Hepatomegaly, not elsewhere classified; R13.10 Dysphagia, unspecified; R33.9 Retention of urine, unspecified; K44.9 Diaphragmatic hernia without obstruction or gangrene; E86.9 Volume depletion, unspecified; B37.9 Candidiasis, unspecified; K11.7 Disturbances of salivary secretion; R60.0 Localized edema; Z87.01 Personal history of pneumonia (recurrent); Z80.3 Family history of malignant neoplasm of breast; Z87.891 Personal history of nicotine dependence; Z68.28 Body mass index [BMI] 28.0-28.9, adult
CPT/HCPCS: 36415; 70490; 71045; 71260; 74177; 74183; 76700; 80048; 80053; 82105; 82140; 82272; 82378; 82945; 83516; 83605; 83615; 83630; 83690; 83735; 84157; 85025; 85610; 86140; 86256; 86301; 86671; 86703; 86850; 86900; 86901; 86927; 87040; 87045; 87046; 87070; 87077; 87177; 87205; 87209; 87252; 87328; 87329; 87493; 87899; 88112; 88305; 88312; 89051; 94640; 94760; 99156; 99157; 99223; 99233; 99284; A9270-GY; A9581; J2250; J3010; P9017; P9047; Q9967

== ENCOUNTER 2017-07-13 10:56 | Emergency (ER) | payer OTHER ==
[2017-07-13 11:07] VITALS: BP 115/81
== END 2017-07-13 13:13 | disposition left against medical advice (07) ==
LOC: ED 10:56
DX: R19.7 Diarrhea, unspecified (principal); Z53.21 Procedure and treatment not carried out due to patient leaving prior to being seen by health care provider
CPT/HCPCS: 99281